=== PATIENT | male | born 1940 | race Caucasian/White ===

== ENCOUNTER 2017-09-21 16:46 | Emergency (ER) | payer MEDICARE, MEDICAID ==
[~2017-09-21] VITALS: Ht 167.6 cm; Wt 98.9 kg
[~2017-09-21 16:46] MED LIST: ASCO125T PO; ASPI-1009 PO; LISI30TA39 PO; ROSU20TA PO; SITA100T15 PO; SULF1TAB49 PO; VITA200T6 PO
[2017-09-21] MEDS ORDERED: bacitracin 15gm ointment TP ONE (17:35)
[2017-09-21] MEDS ORDERED: TETanus/Pertussis (Acell)/Diphther VAC/PF (Tdap-Adult) 0.5ml syringe IM ONE (17:35)
[2017-09-21] MEDS ORDERED: acetaminophen 325mg tablet PO ONE (17:35)
[2017-09-21] MEDS ORDERED: LIDOcaine 5% patch TP ONE (18:15)
[2017-09-21 19:05] VITALS: BP 158/87
== END 2017-09-21 19:09 | disposition home or self-care (01) ==
LOC: ER 16:47
DX: S00.81XA Abrasion of other part of head, initial encounter (principal); S09.8XXA Other specified injuries of head, initial encounter; M54.2 Cervicalgia; M25.512 Pain in left shoulder; I10 Essential (primary) hypertension; I48.91 Unspecified atrial fibrillation; I25.10 Atherosclerotic heart disease of native coronary artery without angina pectoris; E11.9 Type 2 diabetes mellitus without complications; E78.00 Pure hypercholesterolemia, unspecified; Z95.1 Presence of aortocoronary bypass graft; Z79.82 Long term (current) use of aspirin; Z98.890 Other specified postprocedural states; W01.0XXA Fall on same level from slipping, tripping and stumbling without subsequent striking against object, initial encounter; Y93.89 Activity, other specified; Y92.89 Other specified places as the place of occurrence of the external cause; Y99.8 Other external cause status
CPT/HCPCS: 70450; 72125; 90471; 90715; 99284; A6255; A6449

== ENCOUNTER 2017-10-29 02:18 | Outpatient (CLI) | payer MEDICARE, MEDICAID | END 2017-10-29 23:59 | disposition home or self-care (01) | LOC: DIABETIC 02:18 | PROVIDERS: ATTEND Specialist | DX: E11.65 Type 2 diabetes mellitus with hyperglycemia (principal); I10 Essential (primary) hypertension | CPT/HCPCS: G0108 ==

== ENCOUNTER 2018-01-29 02:49 | Outpatient (CLI) | payer MEDICARE, MEDICAID | END 2018-01-29 23:59 | disposition home or self-care (01) | LOC: DIABETIC 02:49 | PROVIDERS: ATTEND Specialist | DX: E11.65 Type 2 diabetes mellitus with hyperglycemia (principal); I10 Essential (primary) hypertension | CPT/HCPCS: G0108 ==

== ENCOUNTER 2020-02-04 09:34 | Emergency (ER) | payer MEDICARE, MEDICAID ==
[~2020-02-04] VITALS: Ht 165.1 cm; Wt 92.9 kg
[~2020-02-04 09:34] MED LIST changes: +AMIO200T61 PO; +APIX5TAB3 PO; -ASPI-1009 PO; +ASPI-845 PO; +CINA30TA2 PO; +DILT180C89 PO; +EZET10TA48 PO; +FENO200C23 PO; +GLIM2TAB6 PO; +HYDR-3972 PO; +LABE100T5 PO; -LISI30TA39 PO; -ROSU20TA PO; +ROSU40TA22 PO; -SITA100T15 PO; -SULF1TAB49 PO
[2020-02-04] MEDS ORDERED: aspirin 81mg tab.chew PO ONE (09:55)
[2020-02-04 10:03] LABS: BASOPHILS # (AUTO) 0.1 X10'3 (0-0.2); BASOPHILS % (AUTO) 0.8 % (0-1); EOSINOPHILS # (AUTO) 0.3 X10'3 (0-0.9); HEMATOCRIT 30.6 % (42.0-52.0); LYMPHOCYTES # (AUTO) 1.2 X10'3 (1.1-4.8); LYMPHOCYTES % (AUTO) 14.5 % (21-51); MEAN CORPUSCULAR HEMOGLOBIN 31.2 PG (27.0-31.0); MEAN CORPUSCULAR HGB CONC 32.7 g/dL (33.0-36.5); MEAN CORPUSCULAR VOLUME 95.5 FL (78-98); MEAN PLATELET VOLUME 9.1 FL (7.4-10.4); MONOCYTES # (AUTO) 0.7 X10'3 (0-0.9); MONOCYTES % (AUTO) 8.3 % (2-12); NEUTROPHILS # (AUTO) 5.9 X10'3 (1.8-7.7); NEUTROPHILS % (AUTO) 72.4 % (42-75); PLATELET COUNT 243 X10'3 (140-440); RED BLOOD COUNT 3.21 X10'6 (4.70-6.10); WHITE BLOOD COUNT 8.1 X10'3 (4.5-11.0)
[2020-02-04 10:15] LABS: ALANINE AMINOTRANSFERASE 25 U/L (12-78); ALBUMIN 3.8 G/DL (3.4-5.0); ALBUMIN/GLOBULIN RATIO 1.1 (1.1-1.5); ALKALINE PHOSPHATASE 75 IU/L (46-116); ANION GAP 10 (8-16); ASPARTATE AMINO TRANSFERASE 13 U/L (10-37); BILIRUBIN,TOTAL 0.5 MG/DL (0.1-1.0); BLOOD UREA NITROGEN 39 MG/DL (7-18); BUN/CREATININE RATIO 13.2 (5.4-32.0); CALCIUM 8.2 MG/DL (8.5-10.1); CHLORIDE 106 MMOL/L (99-107); CREATININE 2.95 MG/DL (0.60-1.10); GLUCOSE 182 MG/DL (70-104); POTASSIUM 3.9 MMOL/L (3.5-5.1); SODIUM 140 MMOL/L (135-145); TOTAL CARBON DIOXIDE 23.7 MMOL/L (24-32); TOTAL PROTEIN 7.2 G/DL (6.4-8.2); eGFR 21 ML/MIN
[2020-02-04 13:04] VITALS: BP 126/65
== END 2020-02-04 13:13 | disposition home or self-care (01) ==
LOC: ER 09:34
DX: R07.89 Other chest pain (principal); I48.91 Unspecified atrial fibrillation; I25.10 Atherosclerotic heart disease of native coronary artery without angina pectoris; E78.00 Pure hypercholesterolemia, unspecified; I10 Essential (primary) hypertension; E11.9 Type 2 diabetes mellitus without complications; M19.90 Unspecified osteoarthritis, unspecified site; Z86.14 Personal history of Methicillin resistant Staphylococcus aureus infection; Z98.61 Coronary angioplasty status; Z95.1 Presence of aortocoronary bypass graft; Z98.890 Other specified postprocedural states; Z60.2 Problems related to living alone; Z88.8 Allergy status to other drugs, medicaments and biological substances; Z79.01 Long term (current) use of anticoagulants; Z79.82 Long term (current) use of aspirin; Z79.899 Other long term (current) drug therapy
CPT/HCPCS: 36415; 71045; 80053; 82948; 83735; 83880; 84484; 85025; 93005; 99285

== ENCOUNTER 2021-10-15 19:24 | Emergency (ER) | payer MEDICARE, MEDICAID ==
[~2021-10-15] VITALS: Ht 162.6 cm; Wt 90.8 kg
[2021-10-15 19:52] VITALS: BP 143/69
[2021-10-15 20:37] LABS: BASOPHILS # (AUTO) 0.1 X10'3 (0-0.2); BASOPHILS % (AUTO) 0.6 % (0-1); EOSINOPHILS # (AUTO) 0.2 X10'3 (0-0.9); EOSINOPHILS % (AUTO) 2.4 % (0-6); LYMPHOCYTES % (AUTO) 10.8 % (21-51); MEAN CORPUSCULAR HEMOGLOBIN 24.7 PG (27.0-31.0); MEAN CORPUSCULAR HGB CONC 31.6 g/dL (33.0-36.5); MEAN CORPUSCULAR VOLUME 78.1 FL (78-98); MEAN PLATELET VOLUME 8.4 FL (7.4-10.4); MONOCYTES # (AUTO) 0.8 X10'3 (0-0.9); NEUTROPHILS % (AUTO) 77.2 % (42-75); PLATELET COUNT 278 X10'3 (140-440); RED BLOOD COUNT 2.69 X10'6 (4.70-6.10); RED CELL DISTRIBUTION WIDTH 19.8 % (11.5-14.5); WHITE BLOOD COUNT 9.1 X10'3 (4.5-11.0)
[2021-10-15 20:44] LABS: HEMOGLOBIN 6.6 g/dl (14.0-17.9)
[2021-10-15 20:55] LABS: ALANINE AMINOTRANSFERASE 24 U/L (12-78); ALBUMIN 3.2 G/DL (3.4-5.0); ALBUMIN/GLOBULIN RATIO 0.9 (1.1-1.5); ALKALINE PHOSPHATASE 123 IU/L (46-116); ANION GAP 16 (8-16); ASPARTATE AMINO TRANSFERASE 14 U/L (10-37); BILIRUBIN,TOTAL 0.3 MG/DL (0.1-1.0); BLOOD UREA NITROGEN 85 MG/DL (7-18); BUN/CREATININE RATIO 19.8 (5.4-32.0); CALCIUM 8.4 MG/DL (8.5-10.1); CHLORIDE 107 MMOL/L (99-107); GLUCOSE 136 MG/DL (70-104); POTASSIUM 3.5 MMOL/L (3.5-5.1); SODIUM 143 MMOL/L (135-145); TOTAL CARBON DIOXIDE 20.3 MMOL/L (24-32); TOTAL PROTEIN 6.7 G/DL (6.4-8.2); eGFR 13 ML/MIN
[2021-10-15] MEDS ORDERED: oxyCODONE/APAP 5-325mg tablet PO ONE (21:25)
[2021-10-15] MEDS ORDERED: ACET-1059 PO (21:37)
[2021-10-15 22:47] LABS: ACANTHOCYTES FEW; ANISOCYTOSIS 2+; BURR CELLS FEW; ELLIPTOCYTES FEW; MICROCYTOSIS 1+; PLATELET ESTIMATE NORMAL
--- NOTE | 2021-10-16 06:52 | NUR ---
PT WAS SEEN LAST NIGHT AND DC HOME. LAB CALLED AND STATES THAT PT HAD A CRITICAL TRIPONIN OF [address]. DR CASTRO NOTIFIED. ADVISED TO CALL PT AND INFORM HIM THAT HIS TRIPONIN IS SL ELEVATED AND INQUIRE IF HE IS HAVING ANY CP OR DISCOMFORT AND TO ADVISE THAT HE RETURN FOR FURTHER EVALUATION OR TO F/U WITH HIS PMD.
--- NOTE | 2021-10-16 08:32 | NUR ---
PT CALLED, NO ANSWER AND MSG WAS LEFT TO RETURN CALL.
--- NOTE | 2021-10-16 08:45 | NUR ---
PT RETURNED PHONE CALL. WAS INFORMED OF SL ELEVATED TRIPONIN AND THAT FURTHER EVALUATION MAY BE REQUIRED. PT STATES THAT HE HAS NO CP, SOB, OR DISCOMFORT OF ANY KIND. PT DECLINED RETURN TO ER AND IT WAS RECOMMENDED THAT HE F/U WITH HIS PMD FOR FURTHER EVALUATION AND TO RETURN TO THE ER SHOULD CONCERNING SYMPTOMS DEVELOPE. PT WAS APPRECIATED THE CALL, THAT HE HAS BEEN DEALING WITH ABNORMAL CARDIAC LABS FOR YEARS AND THAT HE WILL NOTIFIY HIS PMD NEEDED.
== END 2021-10-15 21:39 | disposition home or self-care (01) ==
LOC: ER 19:25
DX: M75.31 Calcific tendinitis of right shoulder (principal); I12.9 Hypertensive chronic kidney disease with stage 1 through stage 4 chronic kidney disease, or unspecified chronic kidney disease; E11.22 Type 2 diabetes mellitus with diabetic chronic kidney disease; N18.4 Chronic kidney disease, stage 4 (severe); D63.1 Anemia in chronic kidney disease; I48.91 Unspecified atrial fibrillation; I25.10 Atherosclerotic heart disease of native coronary artery without angina pectoris; E78.00 Pure hypercholesterolemia, unspecified; M19.90 Unspecified osteoarthritis, unspecified site; Z86.14 Personal history of Methicillin resistant Staphylococcus aureus infection; Z95.5 Presence of coronary angioplasty implant and graft; Z98.890 Other specified postprocedural states; Z88.8 Allergy status to other drugs, medicaments and biological substances; Z79.82 Long term (current) use of aspirin; Z79.899 Other long term (current) drug therapy
CPT/HCPCS: 36415; 71045; 73030; 80053; 83880; 84484; 85008; 85025; 93005; 99284

== ENCOUNTER 2022-02-13 14:52 | Inpatient (IN) | payer MEDICARE, MEDICAID ==
[~2022-02-13] VITALS: Ht 165.1 cm; Wt 87.0 kg
[2022-02-13 15:44] LABS: BASOPHILS % (AUTO) 0.6 % (0-1); EOSINOPHILS % (AUTO) 0.2 % (0-6); LYMPHOCYTES # (AUTO) 0.6 X10'3 (1.1-4.8); LYMPHOCYTES % (AUTO) 7.3 % (21-51); MEAN CORPUSCULAR HEMOGLOBIN 31.2 PG (27.0-31.0); MEAN CORPUSCULAR HGB CONC 31.9 g/dL (33.0-36.5); MEAN CORPUSCULAR VOLUME 97.7 FL (78-98); MEAN PLATELET VOLUME 9.3 FL (7.4-10.4); MONOCYTES # (AUTO) 0.5 X10'3 (0-0.9); MONOCYTES % (AUTO) 5.6 % (2-12); NEUTROPHILS # (AUTO) 7.2 X10'3 (1.8-7.7); NEUTROPHILS % (AUTO) 86.3 % (42-75); PLATELET COUNT 252 X10'3 (140-440); RED BLOOD COUNT 1.92 X10'6 (4.70-6.10); RED CELL DISTRIBUTION WIDTH 16.5 % (11.5-14.5); WHITE BLOOD COUNT 8.3 X10'3 (4.5-11.0)
[2022-02-13 15:47] LABS: HEMATOCRIT 18.8 % (42.0-52.0)
[2022-02-13 15:48] LABS: ALANINE AMINOTRANSFERASE 24 U/L (12-78); ALKALINE PHOSPHATASE 111 IU/L (46-116); ANION GAP 13 (8-16); ASPARTATE AMINO TRANSFERASE 21 U/L (10-37); BILIRUBIN,TOTAL 0.3 MG/DL (0.1-1.0); BLOOD UREA NITROGEN 88 MG/DL (7-18); BUN/CREATININE RATIO 19.3 (5.4-32.0); CALCIUM 8.2 MG/DL (8.5-10.1); CHLORIDE 104 MMOL/L (99-107); CREATININE 4.55 MG/DL (0.60-1.10); GLUCOSE 252 MG/DL (70-104); POTASSIUM 3.3 MMOL/L (3.5-5.1); SODIUM 139 MMOL/L (135-145); TOTAL CARBON DIOXIDE 22.1 MMOL/L (24-32); TOTAL PROTEIN 6.1 G/DL (6.4-8.2); eGFR 13 ML/MIN
[2022-02-13] MEDS ORDERED: pantoprazole 40MG/NS 100ML BAG 100 ML IV ONE (17:25)
[2022-02-13] MEDS ORDERED: pantoprazole IV 80 MG in normal saline 100ml IV soln 100 ML IV ONE (17:25)
[2022-02-13 17:28] LABS: OCCULT BLOOD STOOL POSITIVE (Neg)
[2022-02-13] MEDS ORDERED: human prothrombin complex-PCC 100 ML IV ONE ×2 (17:45→18:05)
[2022-02-13] MEDS ORDERED: normal saline 1000ML IV soln IVB ONE (18:25)
[2022-02-13 21:08] LABS: BASOPHILS % (AUTO) 0.5 % (0-1); EOSINOPHILS # (AUTO) 0.1 X10'3 (0-0.9); EOSINOPHILS % (AUTO) 1.2 % (0-6); LYMPHOCYTES # (AUTO) 0.9 X10'3 (1.1-4.8); MEAN CORPUSCULAR HEMOGLOBIN 30.2 PG (27.0-31.0); MEAN CORPUSCULAR HGB CONC 31.3 g/dL (33.0-36.5); MEAN CORPUSCULAR VOLUME 96.4 FL (78-98); MEAN PLATELET VOLUME 9.1 FL (7.4-10.4); MONOCYTES # (AUTO) 0.5 X10'3 (0-0.9); MONOCYTES % (AUTO) 7.3 % (2-12); NEUTROPHILS # (AUTO) 5.9 X10'3 (1.8-7.7); PLATELET COUNT 231 X10'3 (140-440); RED BLOOD COUNT 1.83 X10'6 (4.70-6.10); RED CELL DISTRIBUTION WIDTH 16.4 % (11.5-14.5); WHITE BLOOD COUNT 7.5 X10'3 (4.5-11.0)
[2022-02-13 21:13] LABS: HEMATOCRIT 17.6 % (42.0-52.0); HEMOGLOBIN 5.5 g/dl (14.0-17.9)
[2022-02-13] MEDS ORDERED: POTASSIUM BICARB 20meq eff tab 20 MEQ TABLET.EFF PO PRN (21:50)
[2022-02-13] MEDS ORDERED: magnesium Cl slow-release 64mg tablet PO PRN (21:50)
[2022-02-13] MEDS ORDERED: magnesium 4gm in 100ml NS 100 ML IV PRN (21:50)
[2022-02-13] MEDS ORDERED: ondansetron/PF 4mg/2ml inj IV PRN (21:50)
[2022-02-13] MEDS ORDERED: morphine 2 MG/ML inj. syringe IV PRN ×2 (21:50)
[2022-02-13] MEDS ORDERED: magnesium 2GM in 50ml NS 50 ML IV PRN (21:50)
[2022-02-13] MEDS ORDERED: diphenhydrAMINE 25mg capsule PO PRN (21:50)
[2022-02-13] MEDS ORDERED: acetaminophen 325mg tablet PO PRN ×2 (21:50)
[2022-02-13] MEDS ORDERED: mag hydrox/Alum hydrox/simeth 30ml oral suspension PO PRN (21:50)
[2022-02-13] MEDS ORDERED: potassium CL 10mEq/100ml bag 100 ML IV PRN (21:50)
[2022-02-13] MEDS ORDERED: magnesium hydroxide 30ml (MOM) UD suspension PO PRN (21:50)
[2022-02-13 22:19] LABS: MEAN CORPUSCULAR HEMOGLOBIN 30.6 PG (27.0-31.0); MEAN CORPUSCULAR HGB CONC 31.6 g/dL (33.0-36.5); MEAN CORPUSCULAR VOLUME 96.6 FL (78-98); MEAN PLATELET VOLUME 8.9 FL (7.4-10.4); PLATELET COUNT 238 X10'3 (140-440); RED BLOOD COUNT 1.83 X10'6 (4.70-6.10); RED CELL DISTRIBUTION WIDTH 16.5 % (11.5-14.5); WHITE BLOOD COUNT 7.6 X10'3 (4.5-11.0)
[2022-02-13 22:26] LABS: HEMOGLOBIN 5.6 g/dl (14.0-17.9)
[2022-02-13 22:27] LABS: HEMATOCRIT 17.7 % (42.0-52.0)
[2022-02-13 22:30] LABS: % IRON SATURATION 9 % (11-46); IRON 26 UG/DL (53-167); TOTAL IRON BINDING CAPACITY 291 UG/DL (259-388)
[2022-02-13 22:43] LABS: FERRITIN 55 NG/ML (26-388)
--- NOTE | 2022-02-13 23:05 | NUR ---
Patient in room ED 1. I have received report from Eugene and had the opportunity to ask questions and assume patient care.
[2022-02-13] MEDS ORDERED: glucagon, human recombinant 1mg kit SUBCUT PRN (23:10)
[2022-02-13] MEDS: normal saline 1000ml 1,000 ML IV SCH (23:10)
[2022-02-13] MEDS: sodium ferric gluc complex inj 125 MG in normal saline 100ml IV soln 100 ML IV SCH (23:10)
[2022-02-13] MEDS ORDERED: dextrose 50%-water 50ml dispensing syringe IV PRN ×2 (23:10)
[2022-02-13] MEDS ORDERED: MESSAGE TO PHARMACY PO ONE (23:10)
[2022-02-13] MEDS ORDERED: DEXTROSE 15 GM of carb/4 tabs (each vial/BOTTLE has 4 tablets) PO PRN ×2 (23:10)
[2022-02-13 23:30] VITALS: BP 102/66
--- NOTE | 2022-02-13 23:30 | NUR ---
Patient arrived on unit via gurney accompanied by RN.
[2022-02-14] VITALS (11 sets, daily range): BP systolic 82–107; BP diastolic 54–68
[2022-02-14] MEDS: POTASSIUM BICARB 20meq eff tab 20 MEQ TABLET.EFF PO PRN ×3 (00:54→20:20)
[2022-02-14] MEDS: pantoprazole 40MG/NS 100ML BAG 100 ML IV SCH ×5 (00:54→21:00)
[2022-02-14 03:14] LABS: BASOPHILS % (AUTO) 0.6 % (0-1); EOSINOPHILS # (AUTO) 0.1 X10'3 (0-0.9); EOSINOPHILS % (AUTO) 1.5 % (0-6); LYMPHOCYTES % (AUTO) 13.7 % (21-51); MEAN CORPUSCULAR HEMOGLOBIN 30.4 PG (27.0-31.0); MEAN CORPUSCULAR HGB CONC 31.5 g/dL (33.0-36.5); MEAN CORPUSCULAR VOLUME 96.3 FL (78-98); MEAN PLATELET VOLUME 9.2 FL (7.4-10.4); MONOCYTES # (AUTO) 0.5 X10'3 (0-0.9); MONOCYTES % (AUTO) 6.3 % (2-12); NEUTROPHILS # (AUTO) 5.9 X10'3 (1.8-7.7); NEUTROPHILS % (AUTO) 77.9 % (42-75); PLATELET COUNT 230 X10'3 (140-440); RED BLOOD COUNT 1.72 X10'6 (4.70-6.10); RED CELL DISTRIBUTION WIDTH 16.5 % (11.5-14.5); WHITE BLOOD COUNT 7.6 X10'3 (4.5-11.0)
[2022-02-14 03:23] LABS: HEMATOCRIT 16.6 % (42.0-52.0); HEMOGLOBIN 5.2 g/dl (14.0-17.9)
--- NOTE | 2022-02-14 03:27 | NUR ---
Paged Dr. Ashley regarding CRITICAL LABS. Hgb 5.2 and Hct 16.6. Patient up to [facility] and became very light headed. Discussed risks and benefits of a blood transfusion and patient is refusing one at this time.
[2022-02-14 03:28] LABS: ALANINE AMINOTRANSFERASE 21 U/L (12-78); ALBUMIN 2.7 G/DL (3.4-5.0); ALBUMIN/GLOBULIN RATIO 0.9 (1.1-1.5); ALKALINE PHOSPHATASE 90 IU/L (46-116); ANION GAP 11 (8-16); ASPARTATE AMINO TRANSFERASE 13 U/L (10-37); BILIRUBIN,TOTAL 0.3 MG/DL (0.1-1.0); BLOOD UREA NITROGEN 84 MG/DL (7-18); BUN/CREATININE RATIO 20.4 (5.4-32.0); CALCIUM 7.8 MG/DL (8.5-10.1); CHLORIDE 107 MMOL/L (99-107); CHOL/HDL RATIO 3.8 (0.00-4.99); CHOLESTEROL 91 MG/DL (0-200); CREATININE 4.12 MG/DL (0.60-1.10); GLUCOSE 133 MG/DL (70-104); HDL CHOLESTEROL 24 MG/DL (35-60); LDL CHOLESTEROL 38 MG/DL (50-100); MAGNESIUM 1.6 MG/DL (1.5-2.4); PHOSPHORUS 3.9 MG/DL (2.3-4.5); POTASSIUM 3.4 MMOL/L (3.5-5.1); SODIUM 141 MMOL/L (135-145); TOTAL CARBON DIOXIDE 22.6 MMOL/L (24-32); TOTAL PROTEIN 5.6 G/DL (6.4-8.2); TRIGLYCERIDES 132 MG/DL (20-135); eGFR 14 ML/MIN
[2022-02-14] MEDS: normal saline 1000ml 1,000 ML IV SCH ×2 (04:53→14:45)
[2022-02-14] MEDS: K and/or MAG REPLACEMENT MC SCH ×2 (08:00→20:21)
[2022-02-14] MEDS: docusate sod 100mg capsule PO SCH ×2 (08:00→20:19)
[2022-02-14] MEDS ORDERED: fentaNYL/PF 50MCG/1 ML 2ML syringe ONE (08:32)
[2022-02-14] MEDS ORDERED: MIDAZolam 1 MG/ML 5ML VIAL ONE (08:33)
[2022-02-14] MEDS ORDERED: LIDOcaine Viscous 15ml cup ONE (08:33)
--- NOTE | 2022-02-14 08:57 | NUR ---
Pt. kath in EGD with Dr. Chris.
[2022-02-14 09:10] LABS: MEAN CORPUSCULAR HEMOGLOBIN 30.6 PG (27.0-31.0); MEAN CORPUSCULAR HGB CONC 31.5 g/dL (33.0-36.5); MEAN CORPUSCULAR VOLUME 97.2 FL (78-98); MEAN PLATELET VOLUME 8.9 FL (7.4-10.4); PLATELET COUNT 234 X10'3 (140-440); RED BLOOD COUNT 1.71 X10'6 (4.70-6.10); RED CELL DISTRIBUTION WIDTH 16.7 % (11.5-14.5); WHITE BLOOD COUNT 7.7 X10'3 (4.5-11.0)
[2022-02-14 09:13] LABS: HEMOGLOBIN 5.2 g/dl (14.0-17.9)
[2022-02-14 09:14] LABS: HEMATOCRIT 16.6 % (42.0-52.0)
--- NOTE | 2022-02-14 09:14 | NUR ---
Message: Joselito Javier 3014A FYI critical H&H 5.2/16.6 Down in EGD. Micaela [phone]
[2022-02-14 13:54] LABS: MEAN CORPUSCULAR HEMOGLOBIN 30.1 PG (27.0-31.0); MEAN CORPUSCULAR HGB CONC 30.9 g/dL (33.0-36.5); MEAN CORPUSCULAR VOLUME 97.3 FL (78-98); MEAN PLATELET VOLUME 9.4 FL (7.4-10.4); PLATELET COUNT 223 X10'3 (140-440); RED BLOOD COUNT 1.69 X10'6 (4.70-6.10); RED CELL DISTRIBUTION WIDTH 16.3 % (11.5-14.5); WHITE BLOOD COUNT 7.4 X10'3 (4.5-11.0)
[2022-02-14 14:00] LABS: HEMATOCRIT 16.5 % (42.0-52.0); HEMOGLOBIN 5.1 g/dl (14.0-17.9)
[2022-02-14] MEDS ORDERED: PEG 3350/Na sulf,bicarb,Cl/KCl oral sol 4 liter bottle PO ONE (18:30)
--- NOTE | 2022-02-14 18:31 | NUR ---
Gave report to Kaur SOLARES.
--- NOTE | 2022-02-14 18:40 | NUR ---
Gave report to Prudence BECK.
--- NOTE | 2022-02-14 18:40 | NUR ---
Patient in room PCU 3014A. I have received report from Micaela SOLARES and had the opportunity to ask questions and assume patient care.
[2022-02-14] MEDS: labetalol 100mg tablet PO SCH (20:00)
--- NOTE | 2022-02-14 20:45 | NUR ---
Pts SBP 97/61 held Labetalol per MD orders of SBP <100.
[2022-02-14] MEDS: insulin glargine (Lantus) pen - multi-dose SQ SCH (21:00)
[2022-02-14] MEDS: sodium ferric gluc complex inj 125 MG in normal saline 100ml IV soln 100 ML IV SCH (21:28)
[2022-02-15] MEDS: pantoprazole 40MG/NS 100ML BAG 100 ML IV SCH ×5 (00:38→23:41)
[2022-02-15] MEDS: normal saline 1000ml 1,000 ML IV SCH ×2 (00:39→14:13)
--- NOTE | 2022-02-15 00:47 | NUR ---
Encouraged pt to drink more GoLYTELY. PT stated he is sleepy, feels full and will drink more later.
--- NOTE | 2022-02-15 02:30 | NUR ---
Encouraged Pt to drink more GoLYTELY upon room rounds. Pt declined stating his stomach feels like its "doing flips". Assisted pt to the commode with successful BM. Pt stated he was feeling better. Pt denies any nausea. Education provided on use of GoLYTELY. Pt stated he understands and still declines to drink any more at this time. Will continue to monitor.
--- NOTE | 2022-02-15 04:08 | NUR ---
Pt declined taking any more drinks of his GoLytely at this time. Pt states he is tired and wants to sleep. will continue to monitior.
[2022-02-15 06:00] VITALS: BP 82/53
--- NOTE | 2022-02-15 06:29 | NUR ---
Problems reprioritized. Patient report given, questions answered & plan of care reviewed with Contreras RN
[2022-02-15 07:16] LABS: BASOPHILS # (AUTO) 0.1 X10'3 (0-0.2); BASOPHILS % (AUTO) 0.9 % (0-1); EOSINOPHILS # (AUTO) 0.2 X10'3 (0-0.9); EOSINOPHILS % (AUTO) 2.1 % (0-6); LYMPHOCYTES # (AUTO) 1.1 X10'3 (1.1-4.8); LYMPHOCYTES % (AUTO) 14.5 % (21-51); MEAN CORPUSCULAR HEMOGLOBIN 30.6 PG (27.0-31.0); MEAN CORPUSCULAR VOLUME 98.8 FL (78-98); MEAN PLATELET VOLUME 8.8 FL (7.4-10.4); MONOCYTES # (AUTO) 0.6 X10'3 (0-0.9); MONOCYTES % (AUTO) 8.6 % (2-12); NEUTROPHILS # (AUTO) 5.5 X10'3 (1.8-7.7); NEUTROPHILS % (AUTO) 73.9 % (42-75); PLATELET COUNT 209 X10'3 (140-440); RED BLOOD COUNT 1.76 X10'6 (4.70-6.10); RED CELL DISTRIBUTION WIDTH 16.9 % (11.5-14.5); WHITE BLOOD COUNT 7.5 X10'3 (4.5-11.0)
[2022-02-15 07:23] LABS: ALANINE AMINOTRANSFERASE 27 U/L (12-78); ALBUMIN 2.5 G/DL (3.4-5.0); ALBUMIN/GLOBULIN RATIO 0.9 (1.1-1.5); ALKALINE PHOSPHATASE 85 IU/L (46-116); ANION GAP 13 (8-16); ASPARTATE AMINO TRANSFERASE 26 U/L (10-37); BILIRUBIN,TOTAL 0.3 MG/DL (0.1-1.0); BLOOD UREA NITROGEN 73 MG/DL (7-18); CALCIUM 7.4 MG/DL (8.5-10.1); CHLORIDE 111 MMOL/L (99-107); CREATININE 3.85 MG/DL (0.60-1.10); GLUCOSE 94 MG/DL (70-104); MAGNESIUM 1.6 MG/DL (1.5-2.4); PHOSPHORUS 4.2 MG/DL (2.3-4.5); POTASSIUM 3.7 MMOL/L (3.5-5.1); SODIUM 144 MMOL/L (135-145); TOTAL CARBON DIOXIDE 20.5 MMOL/L (24-32); TOTAL PROTEIN 5.3 G/DL (6.4-8.2); eGFR 15 ML/MIN
[2022-02-15] MEDS: labetalol 100mg tablet PO SCH ×2 (08:00→20:51)
[2022-02-15] MEDS: diltiazem CD 180mg cap (once-daily) PO SCH (08:00)
[2022-02-15] MEDS: docusate sod 100mg capsule PO SCH ×2 (08:00→20:51)
[2022-02-15] MEDS ORDERED: fenofibrate 145mg tablet PO SCH (08:00)
[2022-02-15] MEDS: K and/or MAG REPLACEMENT MC SCH ×2 (08:00→20:52)
[2022-02-15] MEDS ORDERED: VITAMIN E 400 UNIT PO SCH (08:00)
[2022-02-15 08:03] LABS: HEMATOCRIT 17.4 % (42.0-52.0); HEMOGLOBIN 5.4 g/dl (14.0-17.9)
[2022-02-15] MEDS: amiodarone 200mg tablet PO SCH (08:18)
[2022-02-15] MEDS: atorvastatin 20mg tablet PO SCH (08:18)
[2022-02-15] MEDS: ezetimibe 10mg tablet PO SCH (08:18)
[2022-02-15] MEDS: cinacalcet 30mg tablet PO SCH (08:18)
--- NOTE | 2022-02-15 08:27 | NUR ---
Message: PO WINN RM [id number] CRITICAL VALUE HGB 5.4
[2022-02-15 11:00] VITALS: BP 110/64
--- NOTE | 2022-02-15 12:43 | NUR ---
Message: RE DULCE WINN RM 1448K COLONOSCOPY RESCHEDULED FOR TOMORROW. PT IS DRINKING GO LYTELY! THANK YOU, YASEMIN SOLARES Custom Responses: promotional table spacer
[2022-02-15 15:00] VITALS: BP 103/65
[2022-02-15] MEDS ORDERED: EPOETIN ALFA-EPBX 20,000 UNIT/ML 1 ML MDV SQ SCH (15:40)
[2022-02-15] MEDS ORDERED: ondansetron 4mg rapidly disintigrating tab PO PRN (16:40)
--- NOTE | 2022-02-15 17:13 | NUR ---
NOTIFIED PHARMACY I NEEDED EPOETIN. LOCKSTITCH SLEEVE SETTER STATED THEY WOULD PREPARE AND DELIVER. I CALLED AGAIN SINCE IT STILL HAD NOT BEEN DELIVERED. PHARMTECH NOW STATES THEY DO NOT HAVE ANYONE TO BRING IT TO ME RIGHT NOW, THEY WILL DELIVER TO THE REFRIGERATOR SOON SOMEONE CAN. I REQUESTED THE MED BE RETIMED ISNCE IT APPEARS I WOULD BE ADMINISTERING LATE, WAS TOLD NO THEY COULD NOT. IF NOT HERE BY TIME NOC SHIFT ARRIVES I WILL REPORT THIS TO ONCOMING NURSE.
[2022-02-15 18:00] VITALS: BP 105/65
[2022-02-15] MEDS: insulin glargine (Lantus) pen - multi-dose SQ SCH (21:00)
[2022-02-15 22:00] VITALS: BP 90/50
[2022-02-15] MEDS: sodium ferric gluc complex inj 125 MG in normal saline 100ml IV soln 100 ML IV SCH (22:33)
[2022-02-16] VITALS (20 sets, daily range): BP systolic 56–112; BP diastolic 12–67
[2022-02-16] MEDS: normal saline 1000ml 1,000 ML IV SCH (02:26)
[2022-02-16] MEDS: pantoprazole 40MG/NS 100ML BAG 100 ML IV SCH ×5 (04:46→23:01)
[2022-02-16 06:15] LABS: BASOPHILS % (AUTO) 0.6 % (0-1); EOSINOPHILS # (AUTO) 0.1 X10'3 (0-0.9); EOSINOPHILS % (AUTO) 1.3 % (0-6); LYMPHOCYTES # (AUTO) 0.8 X10'3 (1.1-4.8); LYMPHOCYTES % (AUTO) 13.3 % (21-51); MEAN CORPUSCULAR HEMOGLOBIN 30.9 PG (27.0-31.0); MEAN CORPUSCULAR HGB CONC 31.5 g/dL (33.0-36.5); MEAN CORPUSCULAR VOLUME 97.9 FL (78-98); MEAN PLATELET VOLUME 8.9 FL (7.4-10.4); MONOCYTES # (AUTO) 0.5 X10'3 (0-0.9); MONOCYTES % (AUTO) 7.5 % (2-12); NEUTROPHILS # (AUTO) 4.8 X10'3 (1.8-7.7); NEUTROPHILS % (AUTO) 77.3 % (42-75); PLATELET COUNT 207 X10'3 (140-440); RED BLOOD COUNT 1.76 X10'6 (4.70-6.10); RED CELL DISTRIBUTION WIDTH 16.6 % (11.5-14.5); WHITE BLOOD COUNT 6.2 X10'3 (4.5-11.0)
--- NOTE | 2022-02-16 06:18 | NUR ---
Problems reprioritized. Patient report given, questions answered & plan of care reviewed with Solange SOLARES
[2022-02-16 06:21] LABS: HEMATOCRIT 17.2 % (42.0-52.0); HEMOGLOBIN 5.4 g/dl (14.0-17.9)
[2022-02-16 06:32] LABS: ALANINE AMINOTRANSFERASE 52 U/L (12-78); ALBUMIN 2.5 G/DL (3.4-5.0); ALKALINE PHOSPHATASE 87 IU/L (46-116); ANION GAP 13 (8-16); ASPARTATE AMINO TRANSFERASE 44 U/L (10-37); BILIRUBIN,TOTAL 0.3 MG/DL (0.1-1.0); BLOOD UREA NITROGEN 62 MG/DL (7-18); BUN/CREATININE RATIO 16.7 (5.4-32.0); CALCIUM 7.6 MG/DL (8.5-10.1); CHLORIDE 113 MMOL/L (99-107); CREATININE 3.72 MG/DL (0.60-1.10); GLUCOSE 68 MG/DL (70-104); MAGNESIUM 1.6 MG/DL (1.5-2.4); PHOSPHORUS 4.4 MG/DL (2.3-4.5); POTASSIUM 3.3 MMOL/L (3.5-5.1); SODIUM 147 MMOL/L (135-145); TOTAL PROTEIN 5.1 G/DL (6.4-8.2); eGFR 16 ML/MIN
--- NOTE | 2022-02-16 07:40 | NUR ---
Paged Dr Colbert Message: [phone]. Joselito Javier. BP 70/30 w/dizziness. 250 ml NS bolus given 98/49 w/no dizziness. Solange Ratliff [phone] Transaction number: [id number]
[2022-02-16] MEDS: labetalol 100mg tablet PO SCH ×2 (08:00→19:20)
[2022-02-16] MEDS: docusate sod 100mg capsule PO SCH ×2 (08:00→19:19)
[2022-02-16] MEDS: diltiazem CD 180mg cap (once-daily) PO SCH (08:00)
[2022-02-16] MEDS: K and/or MAG REPLACEMENT MC SCH ×2 (08:00→19:23)
--- NOTE | 2022-02-16 08:15 | NUR ---
Pt's BP is better and not feeling dizzy anymore. All other VS stable. monitoring
[2022-02-16] MEDS: cinacalcet 30mg tablet PO SCH (08:55)
[2022-02-16] MEDS: ezetimibe 10mg tablet PO SCH (08:55)
[2022-02-16] MEDS: amiodarone 200mg tablet PO SCH (08:55)
[2022-02-16] MEDS: vitamin E 400 unit capsule PO SCH (08:55)
[2022-02-16] MEDS: atorvastatin 20mg tablet PO SCH (08:55)
[2022-02-16] MEDS ORDERED: fentaNYL/PF 50MCG/1 ML 2ML syringe ONE (09:08)
[2022-02-16] MEDS ORDERED: MIDAZolam 1 MG/ML 5ML VIAL ONE (09:08)
--- NOTE | 2022-02-16 09:11 | NUR ---
Spoke with patient re: needing blood transfusion. Risks vs benefits explained - pt still declining blood products and understands his very poor prognosis.
--- NOTE | 2022-02-16 09:20 | NUR ---
Pt taken down for procedure.
[2022-02-16] MEDS: fenofibrate 145mg tablet PO SCH (10:00)
--- NOTE | 2022-02-16 12:00 | NUR ---
Pt refused 1200 BG check
--- NOTE | 2022-02-16 12:45 | NUR ---
Paged Dr Colbert Message: [phone]. Joselito Javier. Pt back from colonoscopy. Can he eat? Sherie Narvaez [phone] Transaction number: [id number]
--- NOTE | 2022-02-16 13:18 | NUR ---
Paged Dr Colbert Message: [phone]. Joselito Javier. Can pt eat? Thx Solange [phone] Transaction number: [id number]
--- NOTE | 2022-02-16 13:20 | NUR ---
Per MD Filemon wright for patient to eat, start with full liquids then advance to heart healthy for dinner.
[2022-02-16] MEDS: POTASSIUM BICARB 20meq eff tab 20 MEQ TABLET.EFF PO PRN ×2 (14:33→19:23)
--- NOTE | 2022-02-16 17:58 | NUR ---
Pt has been pleasant all day. Colonoscopy was performed. Medical mgmt by hospitalist. Pt was dizzy this AM with low BP. 250 NS bolus given with + results. MD aware. Pt has had soft BP's throughout the day but no dizzyness. He has been able to transfer himself to and from the bed to commode with ease. Pt was able to eat a full liquid diet for lunch and advanced to a heart healthy for dinner. Pt is still refusing any blood products despite multiple visitors/family speaking with him.
[2022-02-16] MEDS: sodium ferric gluc complex inj 125 MG in normal saline 100ml IV soln 100 ML IV SCH (20:58)
[2022-02-16] MEDS: insulin glargine (Lantus) pen - multi-dose SQ SCH (21:27)
[2022-02-17] VITALS (13 sets, daily range): BP systolic 74–119; BP diastolic 36–65
[2022-02-17] MEDS: normal saline 1000ml 1,000 ML IV SCH (01:01)
[2022-02-17] MEDS: pantoprazole 40MG/NS 100ML BAG 100 ML IV SCH ×5 (03:25→20:43)
--- NOTE | 2022-02-17 06:47 | NUR ---
Change of shift report given to BECK Douglas. Issues reprioritized. pt stable. no acute complaints at this time
[2022-02-17 06:49] LABS: BASOPHILS % (AUTO) 0.3 % (0-1); EOSINOPHILS # (AUTO) 0.2 X10'3 (0-0.9); EOSINOPHILS % (AUTO) 1.5 % (0-6); LYMPHOCYTES # (AUTO) 1.1 X10'3 (1.1-4.8); LYMPHOCYTES % (AUTO) 8.6 % (21-51); MEAN CORPUSCULAR HEMOGLOBIN 30.3 PG (27.0-31.0); MEAN CORPUSCULAR HGB CONC 30.8 g/dL (33.0-36.5); MEAN CORPUSCULAR VOLUME 98.3 FL (78-98); MEAN PLATELET VOLUME 9.3 FL (7.4-10.4); MONOCYTES # (AUTO) 1.1 X10'3 (0-0.9); MONOCYTES % (AUTO) 8.5 % (2-12); NEUTROPHILS # (AUTO) 10.5 X10'3 (1.8-7.7); NEUTROPHILS % (AUTO) 81.1 % (42-75); PLATELET COUNT 231 X10'3 (140-440); RED BLOOD COUNT 2.01 X10'6 (4.70-6.10); RED CELL DISTRIBUTION WIDTH 16.5 % (11.5-14.5)
[2022-02-17 06:53] LABS: ALANINE AMINOTRANSFERASE 169 U/L (12-78); ALBUMIN 2.6 G/DL (3.4-5.0); ALBUMIN/GLOBULIN RATIO 0.9 (1.1-1.5); ALKALINE PHOSPHATASE 152 IU/L (46-116); ANION GAP 14 (8-16); ASPARTATE AMINO TRANSFERASE 118 U/L (10-37); BILIRUBIN,TOTAL 0.4 MG/DL (0.1-1.0); BLOOD UREA NITROGEN 62 MG/DL (7-18); BUN/CREATININE RATIO 15.4 (5.4-32.0); CALCIUM 7.1 MG/DL (8.5-10.1); CHLORIDE 110 MMOL/L (99-107); CREATININE 4.03 MG/DL (0.60-1.10); GLUCOSE 167 MG/DL (70-104); MAGNESIUM 1.6 MG/DL (1.5-2.4); PHOSPHORUS 5.1 MG/DL (2.3-4.5); POTASSIUM 4.2 MMOL/L (3.5-5.1); SODIUM 143 MMOL/L (135-145); TOTAL CARBON DIOXIDE 18.9 MMOL/L (24-32); TOTAL PROTEIN 5.4 G/DL (6.4-8.2); eGFR 14 ML/MIN
[2022-02-17] MEDS: epoetin 20,000 units/ml inj SQ SCH (06:55)
[2022-02-17 07:02] LABS: HEMATOCRIT 19.8 % (42.0-52.0); HEMOGLOBIN 6.1 g/dl (14.0-17.9)
[2022-02-17] MEDS: K and/or MAG REPLACEMENT MC SCH ×2 (08:00→19:28)
[2022-02-17] MEDS: docusate sod 100mg capsule PO SCH ×2 (08:00→19:28)
[2022-02-17] MEDS: diltiazem CD 180mg cap (once-daily) PO SCH (09:14)
[2022-02-17] MEDS: amiodarone 200mg tablet PO SCH (09:15)
[2022-02-17] MEDS: atorvastatin 20mg tablet PO SCH (09:15)
[2022-02-17] MEDS: fenofibrate 145mg tablet PO SCH (09:16)
[2022-02-17] MEDS: labetalol 100mg tablet PO SCH ×2 (09:16→19:29)
[2022-02-17] MEDS: cinacalcet 30mg tablet PO SCH (09:16)
[2022-02-17] MEDS: ezetimibe 10mg tablet PO SCH (09:17)
[2022-02-17] MEDS: vitamin E 400 unit capsule PO SCH (09:17)
[2022-02-17] MEDS: HYDROcodone/acetaminophen 10/325mg tab PO PRN (09:17)
--- NOTE | 2022-02-17 10:39 | NUR ---
Initial: Pt admit for GIB with symptomatic anemia. Per EMR pt with CKD IV, nephrology following. Pt initially on a liquid diet and eating well with mostly 100% PO intake however not able to meet estimated nutrient needs on liquid diet. Pt now on a heart healthy diet, pending documentation of first meal since diet advancement. Recommend liberalizing to regular diet in view of geriatric age. Noted pt with h/o T2DM, well controlled with A1c 6.0%, DM education not warranted. LBM 6/3 documented with diarrhea and blood in stool. Will continue to follow closely and make recommendations as appropriate pending trends in PO intake. Recommendations: 1) Liberalize to regular diet; monitor electrolytes and need for renal restriction 2) Monitor need for ONS 3) Bowel care per MD 4) Weekly scaled weights Addendum: 02/17/22 at [address] Amended: Links added.
[2022-02-17] MEDS ORDERED: furosemide 40mg/4ml inj IV ONE (11:30)
--- NOTE | 2022-02-17 11:57 | NUR ---
ORDERS FOR TYPE AND SCREEN AND 2 UNITS OF PRBC PUT IN PER DR. LIM.
--- NOTE | 2022-02-17 17:49 | NUR ---
Pt's blood glucose at noon and 1700 were 155 and 153, Pt refused insulin coverage "I'm not going to eat." 3nd unit of PRBC;s up and running no s/syms of reaction. Pt did not have reaction to first unit. Continue to monitor. Notify MD of assessment changes. BP's still soft. MD aware/
[2022-02-17] MEDS: sodium ferric gluc complex inj 125 MG in normal saline 100ml IV soln 100 ML IV SCH (20:31)
[2022-02-17] MEDS: insulin glargine (Lantus) pen - multi-dose SQ SCH (21:43)
[2022-02-18] MEDS: pantoprazole 40MG/NS 100ML BAG 100 ML IV SCH ×2 (01:19→08:44)
[2022-02-18 02:00] VITALS: BP 101/55
[2022-02-18 06:00] VITALS: BP 117/72
[2022-02-18 06:13] LABS: BASOPHILS % (AUTO) 0.3 % (0-1); EOSINOPHILS # (AUTO) 0.2 X10'3 (0-0.9); EOSINOPHILS % (AUTO) 1.7 % (0-6); HEMATOCRIT 24.5 % (42.0-52.0); HEMOGLOBIN 7.7 g/dl (14.0-17.9); LYMPHOCYTES # (AUTO) 0.9 X10'3 (1.1-4.8); LYMPHOCYTES % (AUTO) 6.2 % (21-51); MEAN CORPUSCULAR HEMOGLOBIN 29.6 PG (27.0-31.0); MEAN CORPUSCULAR HGB CONC 31.5 g/dL (33.0-36.5); MEAN PLATELET VOLUME 9.7 FL (7.4-10.4); MONOCYTES # (AUTO) 0.9 X10'3 (0-0.9); MONOCYTES % (AUTO) 6.8 % (2-12); NEUTROPHILS # (AUTO) 11.7 X10'3 (1.8-7.7); PLATELET COUNT 188 X10'3 (140-440); RED CELL DISTRIBUTION WIDTH 17.6 % (11.5-14.5); WHITE BLOOD COUNT 13.8 X10'3 (4.5-11.0)
--- NOTE | 2022-02-18 06:29 | NUR ---
Change of shift report given to BECK Douglas. Issues reprioritized. Pt stable. No acute complaints.
[2022-02-18 06:47] LABS: ALANINE AMINOTRANSFERASE 226 U/L (12-78); ALBUMIN 2.4 G/DL (3.4-5.0); ALKALINE PHOSPHATASE 126 IU/L (46-116); ANION GAP 15 (8-16); ASPARTATE AMINO TRANSFERASE 126 U/L (10-37); BILIRUBIN,TOTAL 0.5 MG/DL (0.1-1.0); BLOOD UREA NITROGEN 68 MG/DL (7-18); BUN/CREATININE RATIO 15.2 (5.4-32.0); CHLORIDE 108 MMOL/L (99-107); CREATININE 4.47 MG/DL (0.60-1.10); GLUCOSE 138 MG/DL (70-104); MAGNESIUM 1.6 MG/DL (1.5-2.4); PHOSPHORUS 4.9 MG/DL (2.3-4.5); SODIUM 140 MMOL/L (135-145); TOTAL CARBON DIOXIDE 17.1 MMOL/L (24-32); TOTAL PROTEIN 4.9 G/DL (6.4-8.2); eGFR 13 ML/MIN
[2022-02-18] MEDS: labetalol 100mg tablet PO SCH (07:03)
--- NOTE | 2022-02-18 07:07 | NUR ---
Paged MD Colbert for HR parameters in regards to Diltiazem CD and Amiodarone. HR has been 49 sustained since yesterday AM. Notified that Trandate will be held secondary to soft BP's since yesterday. Awaiting communication back from . page as follows. (PT Mort, Joselito 1484-a need parameters for HR for diltiazem and amiodarone. HR has been 49 since yesterday. Trandate will be held today secondary to soft BP. Please advise. Stella SHANKS ext [phone])
[2022-02-18] MEDS: docusate sod 100mg capsule PO SCH ×2 (08:00→19:27)
[2022-02-18] MEDS: diltiazem CD 180mg cap (once-daily) PO SCH (08:00)
[2022-02-18] MEDS: K and/or MAG REPLACEMENT MC SCH ×2 (08:00→19:27)
[2022-02-18] MEDS: amiodarone 200mg tablet PO SCH (08:00)
[2022-02-18] MEDS: atorvastatin 20mg tablet PO SCH (08:44)
[2022-02-18] MEDS: vitamin E 400 unit capsule PO SCH (08:45)
[2022-02-18] MEDS: HYDROcodone/acetaminophen 10/325mg tab PO PRN ×2 (08:45→15:41)
[2022-02-18] MEDS: ezetimibe 10mg tablet PO SCH (08:45)
[2022-02-18] MEDS: cinacalcet 30mg tablet PO SCH (08:45)
--- NOTE | 2022-02-18 09:45 | NUR ---
Reviewed HR meds with Radha Cardiac INVESTIGATIVE ANALYST. She stated to hold the Cardiazem CD and give the Amiodarone. Continue to monitor
[2022-02-18 11:02] VITALS: BP 91/57
--- NOTE | 2022-02-18 11:20 | NUR ---
Received orders from Dr. Colbert to discontinue Cardiazem and Labetalol but to continue Amiodarone.
[2022-02-18] MEDS: fenofibrate 145mg tablet PO SCH (11:45)
[2022-02-18] MEDS ORDERED: LIDOcaine 2% 10ml TOPICAL JELLY (Urojet) TP ONE (12:00)
[2022-02-18] MEDS: pantoprazole 40mg Tablet.DR PO SCH ×2 (13:16→17:41)
[2022-02-18 16:04] VITALS: BP 96/55
--- NOTE | 2022-02-18 16:48 | NUR ---
PT adamantly refuses Zepeda catheter.
[2022-02-18 18:00] VITALS: BP 94/61
[2022-02-18] MEDS: insulin Lispro (HumaLOG) vial - multi-dose SQ SCH (18:56)
[2022-02-18] MEDS: sodium ferric gluc complex inj 125 MG in normal saline 100ml IV soln 100 ML IV SCH (20:26)
[2022-02-18] MEDS: insulin glargine (Lantus) pen - multi-dose SQ SCH (20:46)
[2022-02-18 22:00] VITALS: BP 98/61
[2022-02-18] MEDS: ipratropium/albuterol 3ml nebule NEB SCH (22:38)
[2022-02-19 02:00] VITALS: BP 93/60
[2022-02-19] MEDS: ipratropium/albuterol 3ml nebule NEB SCH ×6 (02:47→23:09)
[2022-02-19 06:00] VITALS: BP 94/56
--- NOTE | 2022-02-19 06:26 | NUR ---
Change of shift Report given to BECK Macias. Issues Reprioritized. Pt stable. No acute complaints.
[2022-02-19 06:44] LABS: BASOPHILS % (AUTO) 0.3 % (0-1); EOSINOPHILS # (AUTO) 0.3 X10'3 (0-0.9); EOSINOPHILS % (AUTO) 3.2 % (0-6); HEMATOCRIT 24.7 % (42.0-52.0); HEMOGLOBIN 7.9 g/dl (14.0-17.9); LYMPHOCYTES # (AUTO) 0.8 X10'3 (1.1-4.8); LYMPHOCYTES % (AUTO) 8.3 % (21-51); MEAN CORPUSCULAR HEMOGLOBIN 31.2 PG (27.0-31.0); MEAN CORPUSCULAR HGB CONC 32.1 g/dL (33.0-36.5); MEAN CORPUSCULAR VOLUME 97.4 FL (78-98); MEAN PLATELET VOLUME 9.6 FL (7.4-10.4); MONOCYTES # (AUTO) 0.7 X10'3 (0-0.9); MONOCYTES % (AUTO) 7.2 % (2-12); NEUTROPHILS # (AUTO) 8.2 X10'3 (1.8-7.7); PLATELET COUNT 164 X10'3 (140-440); RED BLOOD COUNT 2.53 X10'6 (4.70-6.10); RED CELL DISTRIBUTION WIDTH 18.6 % (11.5-14.5); WHITE BLOOD COUNT 10.1 X10'3 (4.5-11.0)
[2022-02-19 07:14] LABS: ALANINE AMINOTRANSFERASE 203 U/L (12-78); ALBUMIN 2.4 G/DL (3.4-5.0); ALBUMIN/GLOBULIN RATIO 0.9 (1.1-1.5); ALKALINE PHOSPHATASE 139 IU/L (46-116); ANION GAP 15 (8-16); ASPARTATE AMINO TRANSFERASE 72 U/L (10-37); BILIRUBIN,TOTAL 0.5 MG/DL (0.1-1.0); BLOOD UREA NITROGEN 67 MG/DL (7-18); BUN/CREATININE RATIO 14.7 (5.4-32.0); CALCIUM 7.2 MG/DL (8.5-10.1); CHLORIDE 107 MMOL/L (99-107); CREATININE 4.57 MG/DL (0.60-1.10); GLUCOSE 124 MG/DL (70-104); MAGNESIUM 1.7 MG/DL (1.5-2.4); PHOSPHORUS 4.5 MG/DL (2.3-4.5); POTASSIUM 3.7 MMOL/L (3.5-5.1); SODIUM 139 MMOL/L (135-145); TOTAL CARBON DIOXIDE 16.6 MMOL/L (24-32); TOTAL PROTEIN 5.2 G/DL (6.4-8.2); eGFR 12 ML/MIN
--- NOTE | 2022-02-19 07:26 | NUR ---
Patient in room PCU 3014A. I have received report from BECK WILHELM and had the opportunity to ask questions and assume patient care.
[2022-02-19] MEDS: K and/or MAG REPLACEMENT MC SCH ×2 (08:00→20:00)
--- NOTE | 2022-02-19 08:04 | NUR ---
HOLDING BP MEDS DUE LOW BP, DR POLANCO AWAITING CALL BACK
[2022-02-19] MEDS: vitamin E 400 unit capsule PO SCH (08:18)
[2022-02-19] MEDS: ezetimibe 10mg tablet PO SCH (08:18)
[2022-02-19] MEDS: pantoprazole 40mg Tablet.DR PO SCH ×2 (08:18→17:41)
[2022-02-19] MEDS: cinacalcet 30mg tablet PO SCH (08:18)
[2022-02-19] MEDS: docusate sod 100mg capsule PO SCH ×2 (08:18→20:23)
[2022-02-19] MEDS: fenofibrate 145mg tablet PO SCH (08:18)
[2022-02-19] MEDS: atorvastatin 20mg tablet PO SCH (08:19)
[2022-02-19] MEDS: amiodarone 200mg tablet PO SCH (08:21)
[2022-02-19] MEDS ORDERED: DOBUTamine-DoBUTrex 500mg/D5W 250 ML IV SCH (09:30)
--- NOTE | 2022-02-19 09:45 | NUR ---
Problems reprioritized. Patient report given, questions answered & plan of care reviewed with BECK MAYER.
--- NOTE | 2022-02-19 09:45 | NUR ---
Patient in room PCU 3014. I have received report from BECK SINGER, and had the opportunity to ask questions and assume patient care.
[2022-02-19] MEDS: furosemide 20 MG/2 ML vial IV SCH ×2 (09:51→20:23)
[2022-02-19 11:00] VITALS: BP 94/59
[2022-02-19] MEDS: insulin Lispro (HumaLOG) vial - multi-dose SQ SCH ×2 (14:21→18:56)
[2022-02-19 15:00] VITALS: BP 97/62
[2022-02-19 18:30] VITALS: BP 95/67
--- NOTE | 2022-02-19 18:35 | NUR ---
Problems reprioritized. Patient report given, questions answered & plan of care reviewed with BECK ABREU.
[2022-02-19] MEDS: sodium ferric gluc complex inj 125 MG in normal saline 100ml IV soln 100 ML IV SCH (21:14)
[2022-02-19] MEDS: insulin glargine (Lantus) pen - multi-dose SQ SCH (21:17)
[2022-02-19 22:00] VITALS: BP 103/66
[2022-02-20 02:00] VITALS: BP 98/57
[2022-02-20] MEDS: ipratropium/albuterol 3ml nebule NEB SCH ×6 (02:52→23:26)
--- NOTE | 2022-02-20 06:24 | NUR ---
Problems reprioritized. Patient report given, questions answered & plan of care reviewed with Rina. Addendum: 02/20/22 at 0624 by Isak Ingram RN Amended: Links added.
[2022-02-20 06:56] LABS: BASOPHILS % (AUTO) 0.2 % (0-1); EOSINOPHILS # (AUTO) 0.3 X10'3 (0-0.9); EOSINOPHILS % (AUTO) 3.9 % (0-6); HEMATOCRIT 23.7 % (42.0-52.0); HEMOGLOBIN 7.6 g/dl (14.0-17.9); LYMPHOCYTES # (AUTO) 0.9 X10'3 (1.1-4.8); LYMPHOCYTES % (AUTO) 10.3 % (21-51); MEAN CORPUSCULAR HGB CONC 32.3 g/dL (33.0-36.5); MEAN CORPUSCULAR VOLUME 95.9 FL (78-98); MEAN PLATELET VOLUME 9.6 FL (7.4-10.4); MONOCYTES # (AUTO) 0.7 X10'3 (0-0.9); MONOCYTES % (AUTO) 8.1 % (2-12); NEUTROPHILS # (AUTO) 6.6 X10'3 (1.8-7.7); NEUTROPHILS % (AUTO) 77.5 % (42-75); PLATELET COUNT 146 X10'3 (140-440); RED BLOOD COUNT 2.47 X10'6 (4.70-6.10); RED CELL DISTRIBUTION WIDTH 17.4 % (11.5-14.5); WHITE BLOOD COUNT 8.6 X10'3 (4.5-11.0)
[2022-02-20 07:00] VITALS: BP 103/67
[2022-02-20 07:16] LABS: ALANINE AMINOTRANSFERASE 156 U/L (12-78); ALBUMIN 2.4 G/DL (3.4-5.0); ALBUMIN/GLOBULIN RATIO 0.9 (1.1-1.5); ALKALINE PHOSPHATASE 128 IU/L (46-116); ANION GAP 12 (8-16); ASPARTATE AMINO TRANSFERASE 42 U/L (10-37); BILIRUBIN,TOTAL 0.5 MG/DL (0.1-1.0); BLOOD UREA NITROGEN 69 MG/DL (7-18); BUN/CREATININE RATIO 13.9 (5.4-32.0); CALCIUM 7.5 MG/DL (8.5-10.1); CHLORIDE 106 MMOL/L (99-107); CREATININE 4.95 MG/DL (0.60-1.10); GLUCOSE 91 MG/DL (70-104); MAGNESIUM 1.6 MG/DL (1.5-2.4); PHOSPHORUS 4.5 MG/DL (2.3-4.5); POTASSIUM 3.5 MMOL/L (3.5-5.1); SODIUM 138 MMOL/L (135-145); TOTAL CARBON DIOXIDE 19.8 MMOL/L (24-32); TOTAL PROTEIN 5.2 G/DL (6.4-8.2); eGFR 11 ML/MIN
--- NOTE | 2022-02-20 07:54 | NUR ---
Reassessment; Pt continues on Heart Healthy diet w/ good PO intake, mostly 75-100% of meals meeting est nutrient needs. Recommend liberalizing to Regular diet given age and low lipids. LBM 6/6 receiving routine colace. No nutrition intervention implemented at this time, will continue to monitor. Recommendations: 1) Liberalize to regular diet; monitor electrolytes and need for renal restriction 2) Bowel care per MD 3) Weekly scaled weights Addendum: 02/20/22 at [address] Amended: Links added.
--- NOTE | 2022-02-20 07:59 | NUR ---
page to [facility] cardiology [id number] Mort. PT just went into afib with HR 90-120s. Rina@[phone]
[2022-02-20] MEDS: K and/or MAG REPLACEMENT MC SCH ×2 (08:00→20:00)
[2022-02-20] MEDS: pantoprazole 40mg Tablet.DR PO SCH ×2 (08:16→17:14)
[2022-02-20] MEDS: insulin Lispro (HumaLOG) vial - multi-dose SQ SCH ×2 (08:16→13:29)
[2022-02-20] MEDS: docusate sod 100mg capsule PO SCH ×2 (08:17→20:38)
[2022-02-20] MEDS: cinacalcet 30mg tablet PO SCH (08:17)
[2022-02-20] MEDS: furosemide 20 MG/2 ML vial IV SCH (08:18)
[2022-02-20] MEDS: amiodarone 200mg tablet PO SCH (08:18)
[2022-02-20] MEDS: ezetimibe 10mg tablet PO SCH (08:18)
[2022-02-20] MEDS: atorvastatin 20mg tablet PO SCH (08:18)
[2022-02-20] MEDS: vitamin E 400 unit capsule PO SCH (08:18)
[2022-02-20] MEDS: fenofibrate 145mg tablet PO SCH (08:18)
[2022-02-20 08:28] LABS: CLARITY,URINE CLOUDY (Clear); COLOR,URINE YELLOW (Yellow); GLUCOSE, URINE NEGATIVE (Neg); KETONES,URINE NEGATIVE (Neg); LEUKOCYTE ESTERASE ,URINE MODERATE (Neg); NITRITES, URINE NEGATIVE (Neg); OCCULT BLOOD,URINE TRACE-INTACT (Neg); PROTEIN,URINE TRACE mg/dl (Neg); UROBILINOGEN,URINE 0.2 E.U/dL (0.2-1.0)
[2022-02-20 08:31] LABS: TOTAL PROTEIN,URINE RANDOM 36.3 MG/DL
[2022-02-20 08:32] LABS: UA COLLECTION TYPE CLN CATCH MIDSTREAM
[2022-02-20 08:35] LABS: HYALINE CASTS 0-3 /LPF (NEGATIVE); SQUAMOUS EPITHELIAL CELL,UR FEW /LPF (FEW)
[2022-02-20 08:36] LABS: BACTERIA,URINE FEW /HPF (Neg); MUCUS STRANDS FEW /LPF (Neg); RBC,URINE 0-2 /HPF (0-2)
[2022-02-20] MEDS: diltiazem 30mg tablet PO SCH ×3 (09:09→20:38)
[2022-02-20 09:21] LABS: UA EOSINOPHILS NO EOS /HPF
--- NOTE | 2022-02-20 09:50 | NUR ---
procrit given late because pharmacy had not brought it up yet this am
[2022-02-20] MEDS: epoetin 20,000 units/ml inj SQ SCH (09:52)
[2022-02-20 11:00] VITALS: BP 99/33
[2022-02-20 15:00] VITALS: BP 96/66
--- NOTE | 2022-02-20 16:39 | NUR ---
patient c/o redness irritation in groin - barrier cream applied WOC consult ordered
[2022-02-20 18:00] VITALS: BP 101/69
--- NOTE | 2022-02-20 18:12 | NUR ---
Problems reprioritized. Patient report given, questions answered & plan of care reviewed with Vicente RN. Patient resting in bed in no acute distress.
--- NOTE | 2022-02-20 18:21 | NUR ---
I called Dr. Serna and left a message notifiying him that pt has fistula in L arm +thrill/bruit. I am not sure he is aware and may not need TDC placement.
--- NOTE | 2022-02-20 18:23 | NUR ---
Dr. Serna returned my call and would like the fiberglass product tester to assess fistula to make sure there is no need for TDC.
--- NOTE | 2022-02-20 18:26 | NUR ---
I talked with Selena the HD RN rica, she is not on site, but is aware pt has fistula and will come and assess it first thing tomorrow.
[2022-02-20] MEDS: insulin glargine (Lantus) pen - multi-dose SQ SCH (20:38)
[2022-02-20] MEDS: sodium ferric gluc complex inj 125 MG in normal saline 100ml IV soln 100 ML IV SCH (21:30)
[2022-02-20 22:00] VITALS: BP 104/63
[2022-02-21] VITALS (7 sets, daily range): BP systolic 94–140; BP diastolic 51–80
[2022-02-21] MEDS: diltiazem 30mg tablet PO SCH ×4 (02:00→20:28)
[2022-02-21] MEDS: ipratropium/albuterol 3ml nebule NEB SCH ×6 (02:47→22:59)
[2022-02-21 06:48] LABS: BASOPHILS % (AUTO) 0.4 % (0-1); EOSINOPHILS # (AUTO) 0.3 X10'3 (0-0.9); EOSINOPHILS % (AUTO) 3.3 % (0-6); HEMATOCRIT 22.6 % (42.0-52.0); HEMOGLOBIN 7.4 g/dl (14.0-17.9); LYMPHOCYTES # (AUTO) 0.7 X10'3 (1.1-4.8); LYMPHOCYTES % (AUTO) 8.5 % (21-51); MEAN CORPUSCULAR HEMOGLOBIN 30.9 PG (27.0-31.0); MEAN CORPUSCULAR HGB CONC 32.7 g/dL (33.0-36.5); MEAN CORPUSCULAR VOLUME 94.4 FL (78-98); MEAN PLATELET VOLUME 10.3 FL (7.4-10.4); MONOCYTES # (AUTO) 0.6 X10'3 (0-0.9); MONOCYTES % (AUTO) 7.3 % (2-12); NEUTROPHILS # (AUTO) 6.6 X10'3 (1.8-7.7); NEUTROPHILS % (AUTO) 80.5 % (42-75); PLATELET COUNT 140 X10'3 (140-440); RED BLOOD COUNT 2.39 X10'6 (4.70-6.10); RED CELL DISTRIBUTION WIDTH 17.2 % (11.5-14.5); WHITE BLOOD COUNT 8.2 X10'3 (4.5-11.0)
[2022-02-21 07:06] LABS: ALANINE AMINOTRANSFERASE 114 U/L (12-78); ALBUMIN 2.4 G/DL (3.4-5.0); ALBUMIN/GLOBULIN RATIO 0.9 (1.1-1.5); ALKALINE PHOSPHATASE 120 IU/L (46-116); ANION GAP 11 (8-16); ASPARTATE AMINO TRANSFERASE 28 U/L (10-37); BLOOD UREA NITROGEN 68 MG/DL (7-18); CALCIUM 7.4 MG/DL (8.5-10.1); CHLORIDE 106 MMOL/L (99-107); CREATININE 4.84 MG/DL (0.60-1.10); GLUCOSE 99 MG/DL (70-104); MAGNESIUM 1.6 MG/DL (1.5-2.4); PHOSPHORUS 4.5 MG/DL (2.3-4.5); POTASSIUM 3.1 MMOL/L (3.5-5.1); SODIUM 137 MMOL/L (135-145); TOTAL CARBON DIOXIDE 19.9 MMOL/L (24-32); TOTAL PROTEIN 5.2 G/DL (6.4-8.2); eGFR 12 ML/MIN
--- NOTE | 2022-02-21 07:30 | NUR ---
Called acting section chief vision care associate, spoke with Denise. Sanderson she should be here within an hour to check on function of LA fistula. Addendum: 02/21/22 at 0922 by Micaela Loya RN Updated IR
[2022-02-21 07:41] LABS: BILIRUBIN,TOTAL 0.5 MG/DL (0.1-1.0)
--- NOTE | 2022-02-21 07:42 | NUR ---
Spoke with Micaela SOLARES for patient. Asked her to please call and let Angio know if the dialysis nurse is able to access the fistula.
[2022-02-21] MEDS: K and/or MAG REPLACEMENT MC SCH ×2 (08:00→19:53)
[2022-02-21] MEDS ORDERED: EPOETIN ALFA-EPBX 20,000 UNIT/ML 1 ML MDV IV ONE (08:00)
[2022-02-21] MEDS ORDERED: heparin 1,000 units/ml 10ml inj HE ONE ×2 (08:00)
[2022-02-21] MEDS ORDERED: heparin 1,000unit/ml 10ml vial 10 ML IV ONE (08:00)
[2022-02-21] MEDS ORDERED: normal saline 1000ml 250 ML IV PRN (08:00)
[2022-02-21] MEDS: atorvastatin 20mg tablet PO SCH (09:03)
[2022-02-21] MEDS: amiodarone 200mg tablet PO SCH (09:03)
[2022-02-21] MEDS: vitamin E 400 unit capsule PO SCH (09:03)
[2022-02-21] MEDS: ezetimibe 10mg tablet PO SCH (09:04)
[2022-02-21] MEDS: cinacalcet 30mg tablet PO SCH (09:04)
[2022-02-21] MEDS: fenofibrate 145mg tablet PO SCH (09:04)
[2022-02-21] MEDS: docusate sod 100mg capsule PO SCH ×2 (09:04→20:28)
[2022-02-21] MEDS: HYDROcodone/acetaminophen 5mg/325mg tablet PO PRN (09:06)
[2022-02-21] MEDS: pantoprazole 40mg Tablet.DR PO SCH ×2 (09:12→16:45)
[2022-02-21] MEDS: insulin Lispro (HumaLOG) vial - multi-dose SQ SCH (09:20)
[2022-02-21] MEDS ORDERED: LIDOcaine 1% (10mg/ml) 2ml vial SQ ONE (10:00)
[2022-02-21] MEDS ORDERED: LIDOcaine 1% (10mg/ml) 2ml vial ONE (10:00)
--- NOTE | 2022-02-21 10:15 | NUR ---
PIV inserted with ultrasound however vert hard to thread and attempted 4 times with a 22g successful. 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 IV dc'd and pressure applied until hemostasis. insurance job titles aware. Addendum: 02/21/22 at 1018 by Crystal Oliva RN Amended: Links added.
--- NOTE | 2022-02-21 10:30 | NUR ---
Dialysis is in room now.
--- NOTE | 2022-02-21 11:36 | NUR ---
Per Selena tree feller operator, the patient's fistula is accessed and working properly. Patient does not need TDC at this time. Micaela SOLARES aware.
--- NOTE | 2022-02-21 12:09 | NUR ---
PAGER ID: [phone] MESSAGE: Joselito Javier [phone] Low on potassium- 3.1. Unsure if you want me to replace since renal fx so low but nothing ordered. Do you want me to ask Meng? Micaela [phone]
--- NOTE | 2022-02-21 13:36 | NUR ---
PRESSURE ULCER EDUCATION: DEFINITION: A pressure ulcer is an area of skin that breaks down when you stay in one position too long. The constant pressure against the skin reduces the blood flow to that area and the affected tissue dies. CAUSES: "Being bedridden or in a wheelchair "Fragile skin "Having a chronic condition, such as diabetes or vascular disease "Inability to move certain parts of your body without assistance "Older age "Incontinence of urine or stool SYMPTOMS: "A reddened area that DOES NOT turn white when pressed on - this can be the beginning of a pressure ulcer "A blister, deep sore or a crater - these can be advanced pressure ulcers FIRST AID: "Relieve the pressure on this area "Keep the area clean and dry "Call your primary doctor if you see any of the above symptoms "DO NOT massage the area "DO NOT use a donut shaped or ring shaped pillow- these actually interfere with the blood flow and cause complications PREVENTION: "Check for pressure ulcers everyday "Change position at least every two hours to relieve pressure "Use items that help relieve pressure- pillows, sheepskin, foam padding, and powders. "Keep skin clean and dry "Eat healthy well balanced meals "Exercise daily IF YOU SEE ANY OF THESE SYMPTOMS WHILE IN THE HOSPITAL - TELL YOUR NURSE IMMEDIATELY. IF YOU SEE ANY OF THESE SYMPTOMS WHILE AT HOME OR HAVE ANY QUESTIONS OR CONCERNS ABOUT PRESSURE ULCERS - CALL YOUR PRIMARY DOCTOR IMMEDIATELY. Addendum: 02/21/22 at 1336 by Stella Farooq LVN Amended: Links added.
--- NOTE | 2022-02-21 15:59 | NUR ---
Pt's son visiting at this time. Pt. would like to hold off on suppository for now. Addendum: 02/21/22 at 1603 by Micaela Loya RN Disregard - BECK mistake
--- NOTE | 2022-02-21 16:14 | NUR ---
Called lab to have them draw K lab
--- NOTE | 2022-02-21 16:41 | NUR ---
Dr. Fan rounding on floor and assessed pt. States not to replace k related to it is being monitored and adjusted with dialysis. Plan for dialysis tomorrow again with a 4.0 k bath. Selena RN on applications support analyst made aware.
--- NOTE | 2022-02-21 18:39 | NUR ---
GAVE REPORT TO VALARIE SOLARES
[2022-02-21] MEDS: insulin glargine (Lantus) pen - multi-dose SQ SCH (21:10)
[2022-02-21] MEDS: nystatin 15 GM powder TP SCH (21:15)
[2022-02-21] MEDS: sodium ferric gluc complex inj 125 MG in normal saline 100ml IV soln 100 ML IV SCH (21:33)
[2022-02-22 02:00] VITALS: BP 106/55
[2022-02-22] MEDS: diltiazem 30mg tablet PO SCH ×4 (02:00→19:07)
[2022-02-22] MEDS: ipratropium/albuterol 3ml nebule NEB SCH ×5 (02:55→19:00)
[2022-02-22 06:00] VITALS: BP 145/84
[2022-02-22 07:02] LABS: BASOPHILS % (AUTO) 0.3 % (0-1); EOSINOPHILS # (AUTO) 0.3 X10'3 (0-0.9); EOSINOPHILS % (AUTO) 2.9 % (0-6); HEMATOCRIT 23.8 % (42.0-52.0); HEMOGLOBIN 7.7 g/dl (14.0-17.9); LYMPHOCYTES # (AUTO) 0.7 X10'3 (1.1-4.8); LYMPHOCYTES % (AUTO) 7.9 % (21-51); MEAN CORPUSCULAR HEMOGLOBIN 30.6 PG (27.0-31.0); MEAN CORPUSCULAR HGB CONC 32.3 g/dL (33.0-36.5); MEAN CORPUSCULAR VOLUME 94.7 FL (78-98); MONOCYTES # (AUTO) 0.8 X10'3 (0-0.9); MONOCYTES % (AUTO) 8.5 % (2-12); NEUTROPHILS # (AUTO) 7.2 X10'3 (1.8-7.7); NEUTROPHILS % (AUTO) 80.4 % (42-75); PLATELET COUNT 133 X10'3 (140-440); RED BLOOD COUNT 2.51 X10'6 (4.70-6.10); RED CELL DISTRIBUTION WIDTH 18.1 % (11.5-14.5)
[2022-02-22 07:13] LABS: ALANINE AMINOTRANSFERASE 87 U/L (12-78); ALBUMIN 2.3 G/DL (3.4-5.0); ALBUMIN/GLOBULIN RATIO 0.8 (1.1-1.5); ALKALINE PHOSPHATASE 111 IU/L (46-116); ANION GAP 11 (8-16); ASPARTATE AMINO TRANSFERASE 22 U/L (10-37); BILIRUBIN,TOTAL 0.5 MG/DL (0.1-1.0); BLOOD UREA NITROGEN 56 MG/DL (7-18); BUN/CREATININE RATIO 14.1 (5.4-32.0); CALCIUM 7.4 MG/DL (8.5-10.1); CHLORIDE 106 MMOL/L (99-107); CREATININE 3.97 MG/DL (0.60-1.10); GLUCOSE 121 MG/DL (70-104); MAGNESIUM 1.6 MG/DL (1.5-2.4); POTASSIUM 3.5 MMOL/L (3.5-5.1); SODIUM 141 MMOL/L (135-145); TOTAL CARBON DIOXIDE 23.6 MMOL/L (24-32); TOTAL PROTEIN 5.3 G/DL (6.4-8.2); eGFR 15 ML/MIN
[2022-02-22] MEDS ORDERED: LIDOcaine 1% (10mg/ml) 2ml vial SQ ONE (07:40)
[2022-02-22] MEDS ORDERED: EPOETIN ALFA-EPBX 20,000 UNIT/ML 1 ML MDV IV ONE (07:40)
[2022-02-22] MEDS ORDERED: heparin 1,000 units/ml 10ml inj IV ONE (07:40)
[2022-02-22] MEDS ORDERED: normal saline 1000ml 250 ML IV PRN (07:40)
[2022-02-22] MEDS: K and/or MAG REPLACEMENT MC SCH ×2 (08:00→18:47)
[2022-02-22] MEDS: insulin Lispro (HumaLOG) vial - multi-dose SQ SCH ×3 (08:39→19:04)
[2022-02-22] MEDS: cinacalcet 30mg tablet PO SCH (08:40)
[2022-02-22] MEDS: amiodarone 200mg tablet PO SCH (08:41)
[2022-02-22] MEDS: ezetimibe 10mg tablet PO SCH (08:41)
[2022-02-22] MEDS: vitamin E 400 unit capsule PO SCH (08:41)
[2022-02-22] MEDS: docusate sod 100mg capsule PO SCH ×2 (08:41→19:07)
[2022-02-22] MEDS: pantoprazole 40mg Tablet.DR PO SCH ×2 (08:41→16:33)
[2022-02-22] MEDS: atorvastatin 20mg tablet PO SCH (08:41)
[2022-02-22] MEDS: fenofibrate 145mg tablet PO SCH (08:41)
[2022-02-22] MEDS: nystatin 15 GM powder TP SCH ×3 (08:42→21:00)
[2022-02-22 11:00] VITALS: BP 121/71
[2022-02-22 12:11] LABS: HBSAG SCREEN Negative (Negative)
--- NOTE | 2022-02-22 14:25 | NUR ---
PAGER ID: [phone] MESSAGE: Room: 3014A: FYI: the dialysis nurse was unable to cannulate the pt's AV fistula. No dialysis was completed. Dr. Fan has been informed. BECK Chavez [phone]
[2022-02-22 15:00] VITALS: BP 126/81
[2022-02-22 18:00] VITALS: BP 124/71
[2022-02-22] MEDS ORDERED: ipratropium/albuterol 3ml nebule NEB PRN (19:45)
[2022-02-22] MEDS: insulin glargine (Lantus) pen - multi-dose SQ SCH (21:15)
[2022-02-22] MEDS: sodium ferric gluc complex inj 125 MG in normal saline 100ml IV soln 100 ML IV SCH (21:17)
[2022-02-22 22:00] VITALS: BP 107/75
[2022-02-23 02:00] VITALS: BP 125/81
[2022-02-23] MEDS: diltiazem 30mg tablet PO SCH ×4 (02:58→20:36)
[2022-02-23 06:21] LABS: BASOPHILS % (AUTO) 0.1 % (0-1); EOSINOPHILS # (AUTO) 0.2 X10'3 (0-0.9); EOSINOPHILS % (AUTO) 1.5 % (0-6); LYMPHOCYTES # (AUTO) 0.6 X10'3 (1.1-4.8); LYMPHOCYTES % (AUTO) 4.5 % (21-51); MEAN CORPUSCULAR HEMOGLOBIN 30.4 PG (27.0-31.0); MEAN PLATELET VOLUME 9.7 FL (7.4-10.4); MONOCYTES % (AUTO) 6.9 % (2-12); PLATELET COUNT 115 X10'3 (140-440); RED BLOOD COUNT 2.63 X10'6 (4.70-6.10); RED CELL DISTRIBUTION WIDTH 18.9 % (11.5-14.5); WHITE BLOOD COUNT 13.8 X10'3 (4.5-11.0)
--- NOTE | 2022-02-23 06:35 | NUR ---
Problems reprioritized. Patient report given, questions answered & plan of care reviewed with
--- NOTE | 2022-02-23 06:48 | NUR ---
Patient in room PCU 3014. I have received report from Ruiz SOLARES and had the opportunity to ask questions and assume patient care.
[2022-02-23 06:54] LABS: ALANINE AMINOTRANSFERASE 68 U/L (12-78); ALBUMIN 2.3 G/DL (3.4-5.0); ALBUMIN/GLOBULIN RATIO 0.7 (1.1-1.5); ALKALINE PHOSPHATASE 103 IU/L (46-116); ANION GAP 11 (8-16); ASPARTATE AMINO TRANSFERASE 21 U/L (10-37); BILIRUBIN,TOTAL 0.5 MG/DL (0.1-1.0); BLOOD UREA NITROGEN 60 MG/DL (7-18); BUN/CREATININE RATIO 14.6 (5.4-32.0); CALCIUM 7.3 MG/DL (8.5-10.1); CHLORIDE 104 MMOL/L (99-107); CREATININE 4.12 MG/DL (0.60-1.10); GLUCOSE 61 MG/DL (70-104); MAGNESIUM 1.6 MG/DL (1.5-2.4); PHOSPHORUS 4.2 MG/DL (2.3-4.5); POTASSIUM 3.8 MMOL/L (3.5-5.1); SODIUM 136 MMOL/L (135-145); TOTAL CARBON DIOXIDE 21.2 MMOL/L (24-32); TOTAL PROTEIN 5.5 G/DL (6.4-8.2); eGFR 14 ML/MIN
[2022-02-23 07:14] VITALS: BP 118/56
[2022-02-23 07:28] LABS: PLATELET ESTIMATE DECREASED
[2022-02-23 07:29] LABS: ACANTHOCYTES 1+; ANISOCYTOSIS 2+; ELLIPTOCYTES 1+; HYPOCHROMASIA 2+
[2022-02-23] MEDS: amiodarone 200mg tablet PO SCH (07:41)
[2022-02-23] MEDS: fenofibrate 145mg tablet PO SCH (07:41)
[2022-02-23] MEDS: cinacalcet 30mg tablet PO SCH (07:44)
[2022-02-23] MEDS: pantoprazole 40mg Tablet.DR PO SCH ×2 (07:44→17:46)
[2022-02-23] MEDS: docusate sod 100mg capsule PO SCH ×2 (07:44→20:36)
[2022-02-23] MEDS: vitamin E 400 unit capsule PO SCH (07:44)
[2022-02-23] MEDS: atorvastatin 20mg tablet PO SCH (07:44)
[2022-02-23] MEDS: ezetimibe 10mg tablet PO SCH (07:45)
[2022-02-23] MEDS ORDERED: normal saline 1000ml 250 ML IV PRN (08:00)
[2022-02-23] MEDS ORDERED: LIDOcaine 1% (10mg/ml) 2ml vial SQ ONE (08:00)
[2022-02-23] MEDS ORDERED: heparin 1,000 units/ml 10ml inj IV ONE (08:00)
[2022-02-23] MEDS ORDERED: EPOETIN ALFA-EPBX 20,000 UNIT/ML 1 ML MDV IV ONE (08:00)
[2022-02-23] MEDS: K and/or MAG REPLACEMENT MC SCH ×2 (08:00→20:00)
[2022-02-23] MEDS: nystatin 15 GM powder TP SCH ×3 (08:00→20:41)
[2022-02-23] MEDS ORDERED: CefTRIAXone 2gm/NS 100ml IVPB 100 ML IV ONE (09:25)
[2022-02-23 09:53] LABS: BASOPHILS # (AUTO) 0.1 X10'3 (0-0.2); BASOPHILS % (AUTO) 0.9 % (0-1); EOSINOPHILS # (AUTO) 0.2 X10'3 (0-0.9); EOSINOPHILS % (AUTO) 1.3 % (0-6); HEMATOCRIT 26.9 % (42.0-52.0); HEMOGLOBIN 8.5 g/dl (14.0-17.9); LYMPHOCYTES # (AUTO) 0.5 X10'3 (1.1-4.8); LYMPHOCYTES % (AUTO) 3.9 % (21-51); MEAN CORPUSCULAR HEMOGLOBIN 30.8 PG (27.0-31.0); MEAN CORPUSCULAR HGB CONC 31.7 g/dL (33.0-36.5); MEAN PLATELET VOLUME 9.9 FL (7.4-10.4); MONOCYTES # (AUTO) 0.8 X10'3 (0-0.9); MONOCYTES % (AUTO) 6.7 % (2-12); NEUTROPHILS # (AUTO) 10.6 X10'3 (1.8-7.7); NEUTROPHILS % (AUTO) 87.2 % (42-75); PLATELET COUNT 137 X10'3 (140-440); RED BLOOD COUNT 2.77 X10'6 (4.70-6.10); RED CELL DISTRIBUTION WIDTH 19.7 % (11.5-14.5); WHITE BLOOD COUNT 12.1 X10'3 (4.5-11.0)
[2022-02-23 11:00] VITALS: BP 136/46
--- NOTE | 2022-02-23 14:47 | NUR ---
vascular study done to patients left arm positive for thrombus per software support technician. Dr ward paged. order given for heparin SQ BID will continue to monitor
[2022-02-23 15:00] VITALS: BP 134/67
[2022-02-23] MEDS: heparin, porcine 5000 units/ml vial SQ SCH ×2 (15:10→20:36)
[2022-02-23 18:00] VITALS: BP 138/100
--- NOTE | 2022-02-23 18:25 | NUR ---
Patient in room PCU 3014. I have received report from Alicia SOLARES and had the opportunity to ask questions and assume patient care.
--- NOTE | 2022-02-23 18:36 | NUR ---
Problems reprioritized. Patient report given, questions answered & plan of care reviewed with Charis SOLARES.
[2022-02-23] MEDS: insulin glargine (Lantus) pen - multi-dose SQ SCH (21:00)
[2022-02-23] MEDS: sodium ferric gluc complex inj 125 MG in normal saline 100ml IV soln 100 ML IV SCH (21:07)
[2022-02-23] MEDS: doxycycline inj 100 MG in normal saline 100ml IV soln 100 ML IV SCH (21:26)
[2022-02-23 22:00] VITALS: BP 115/76
[2022-02-24] MEDS: diltiazem 30mg tablet PO SCH ×4 (01:53→20:01)
[2022-02-24 02:00] VITALS: BP 113/62
[2022-02-24 06:00] VITALS: BP 91/59
--- NOTE | 2022-02-24 06:35 | NUR ---
Problems reprioritized. Patient report given, questions answered & plan of care reviewed with daiana SOLARES.
[2022-02-24] MEDS: nystatin 15 GM powder TP SCH ×3 (08:00→21:00)
[2022-02-24] MEDS: docusate sod 100mg capsule PO SCH ×2 (08:00→20:01)
[2022-02-24] MEDS: K and/or MAG REPLACEMENT MC SCH ×2 (08:00→20:00)
[2022-02-24] MEDS: heparin, porcine 5000 units/ml vial SQ SCH ×2 (09:26→20:02)
[2022-02-24] MEDS: atorvastatin 20mg tablet PO SCH (09:26)
[2022-02-24] MEDS: HYDROcodone/acetaminophen 10/325mg tab PO PRN ×3 (09:26→22:07)
[2022-02-24] MEDS: fenofibrate 145mg tablet PO SCH (09:27)
[2022-02-24] MEDS: ezetimibe 10mg tablet PO SCH (09:27)
[2022-02-24] MEDS: cinacalcet 30mg tablet PO SCH (09:27)
[2022-02-24] MEDS: doxycycline inj 100 MG in normal saline 100ml IV soln 100 ML IV SCH ×2 (09:27→19:56)
[2022-02-24] MEDS: amiodarone 200mg tablet PO SCH (09:27)
[2022-02-24] MEDS: pantoprazole 40mg Tablet.DR PO SCH ×2 (09:30→16:31)
[2022-02-24] MEDS: vitamin E 400 unit capsule PO SCH (09:30)
[2022-02-24 09:35] LABS: BASOPHILS % (AUTO) 0.3 % (0-1); EOSINOPHILS # (AUTO) 0.1 X10'3 (0-0.9); EOSINOPHILS % (AUTO) 1.3 % (0-6); HEMATOCRIT 25.9 % (42.0-52.0); HEMOGLOBIN 8.3 g/dl (14.0-17.9); LYMPHOCYTES # (AUTO) 0.6 X10'3 (1.1-4.8); LYMPHOCYTES % (AUTO) 5.8 % (21-51); MEAN CORPUSCULAR HGB CONC 32.2 g/dL (33.0-36.5); MEAN CORPUSCULAR VOLUME 96.2 FL (78-98); MEAN PLATELET VOLUME 10.4 FL (7.4-10.4); MONOCYTES # (AUTO) 0.9 X10'3 (0-0.9); MONOCYTES % (AUTO) 8.9 % (2-12); NEUTROPHILS # (AUTO) 8.4 X10'3 (1.8-7.7); NEUTROPHILS % (AUTO) 83.7 % (42-75); PLATELET COUNT 142 X10'3 (140-440); RED BLOOD COUNT 2.69 X10'6 (4.70-6.10); RED CELL DISTRIBUTION WIDTH 18.4 % (11.5-14.5); WHITE BLOOD COUNT 10.1 X10'3 (4.5-11.0)
[2022-02-24 10:01] LABS: ALANINE AMINOTRANSFERASE 51 U/L (12-78); ALBUMIN 2.2 G/DL (3.4-5.0); ALBUMIN/GLOBULIN RATIO 0.7 (1.1-1.5); ALKALINE PHOSPHATASE 97 IU/L (46-116); ANION GAP 11 (8-16); ASPARTATE AMINO TRANSFERASE 18 U/L (10-37); BILIRUBIN,TOTAL 0.6 MG/DL (0.1-1.0); BLOOD UREA NITROGEN 69 MG/DL (7-18); BUN/CREATININE RATIO 15.5 (5.4-32.0); CALCIUM 7.4 MG/DL (8.5-10.1); CHLORIDE 100 MMOL/L (99-107); CREATININE 4.46 MG/DL (0.60-1.10); GLUCOSE 214 MG/DL (70-104); POTASSIUM 4.2 MMOL/L (3.5-5.1); SODIUM 132 MMOL/L (135-145); TOTAL CARBON DIOXIDE 20.6 MMOL/L (24-32); TOTAL PROTEIN 5.4 G/DL (6.4-8.2); eGFR 13 ML/MIN
[2022-02-24] MEDS ORDERED: normal saline 1000ml 250 ML IV PRN (10:25)
[2022-02-24] MEDS ORDERED: EPOETIN ALFA-EPBX 20,000 UNIT/ML 1 ML MDV IV ONE (10:25)
[2022-02-24] MEDS ORDERED: heparin 1,000 units/ml 10ml inj IV ONE (10:25)
[2022-02-24] MEDS ORDERED: LIDOcaine 1% (10mg/ml) 2ml vial SQ ONE (10:25)
[2022-02-24 11:00] VITALS: BP 95/59
--- NOTE | 2022-02-24 14:35 | NUR ---
Notified MD Colbert that news library director notified me that his fistula is poorly functional and she was only able to dialyze him 1 hr. news library director also notified me that she notified Water Tester in charge of Dialysis,
[2022-02-24 15:00] VITALS: BP_SYST 112; BP_SYST 114; BP_DIAS 65; BP_DIAS 74
[2022-02-24] MEDS: sodium ferric gluc complex inj 125 MG in normal saline 100ml IV soln 100 ML IV SCH (20:33)
[2022-02-24] MEDS: insulin glargine (Lantus) pen - multi-dose SQ SCH (20:54)
[2022-02-25] MEDS: diltiazem 30mg tablet PO SCH ×4 (02:00→19:29)
[2022-02-25 06:00] VITALS: BP 111/53
[2022-02-25] MEDS: K and/or MAG REPLACEMENT MC SCH ×2 (08:00→20:00)
[2022-02-25] MEDS: pantoprazole 40mg Tablet.DR PO SCH ×2 (10:02→16:27)
[2022-02-25] MEDS: docusate sod 100mg capsule PO SCH ×2 (10:03→19:29)
[2022-02-25] MEDS: amiodarone 200mg tablet PO SCH (10:04)
[2022-02-25] MEDS: atorvastatin 20mg tablet PO SCH (10:05)
[2022-02-25] MEDS: cinacalcet 30mg tablet PO SCH (10:11)
[2022-02-25] MEDS: fenofibrate 145mg tablet PO SCH (10:12)
[2022-02-25] MEDS: ezetimibe 10mg tablet PO SCH (10:13)
[2022-02-25] MEDS: vitamin E 400 unit capsule PO SCH (10:13)
[2022-02-25] MEDS: heparin, porcine 5000 units/ml vial SQ SCH ×2 (10:14→19:30)
[2022-02-25] MEDS: nystatin 15 GM powder TP SCH ×3 (10:15→21:48)
[2022-02-25 10:46] LABS: BASOPHILS % (AUTO) 0.6 % (0-1); EOSINOPHILS # (AUTO) 0.3 X10'3 (0-0.9); EOSINOPHILS % (AUTO) 3.2 % (0-6); HEMATOCRIT 26.5 % (42.0-52.0); HEMOGLOBIN 8.5 g/dl (14.0-17.9); LYMPHOCYTES # (AUTO) 0.6 X10'3 (1.1-4.8); LYMPHOCYTES % (AUTO) 7.2 % (21-51); MEAN CORPUSCULAR HEMOGLOBIN 30.9 PG (27.0-31.0); MEAN CORPUSCULAR HGB CONC 31.9 g/dL (33.0-36.5); MEAN PLATELET VOLUME 9.7 FL (7.4-10.4); MONOCYTES # (AUTO) 0.8 X10'3 (0-0.9); MONOCYTES % (AUTO) 10.6 % (2-12); NEUTROPHILS # (AUTO) 6.1 X10'3 (1.8-7.7); NEUTROPHILS % (AUTO) 78.4 % (42-75); PLATELET COUNT 145 X10'3 (140-440); RED BLOOD COUNT 2.73 X10'6 (4.70-6.10); RED CELL DISTRIBUTION WIDTH 18.6 % (11.5-14.5); WHITE BLOOD COUNT 7.8 X10'3 (4.5-11.0)
[2022-02-25 11:11] LABS: ALANINE AMINOTRANSFERASE 42 U/L (12-78); ALBUMIN 2.2 G/DL (3.4-5.0); ALBUMIN/GLOBULIN RATIO 0.7 (1.1-1.5); ALKALINE PHOSPHATASE 91 IU/L (46-116); ANION GAP 10 (8-16); ASPARTATE AMINO TRANSFERASE 17 U/L (10-37); BILIRUBIN,TOTAL 0.5 MG/DL (0.1-1.0); BLOOD UREA NITROGEN 69 MG/DL (7-18); BUN/CREATININE RATIO 15.9 (5.4-32.0); CALCIUM 7.4 MG/DL (8.5-10.1); CHLORIDE 100 MMOL/L (99-107); CREATININE 4.34 MG/DL (0.60-1.10); GLUCOSE 189 MG/DL (70-104); SODIUM 133 MMOL/L (135-145); TOTAL CARBON DIOXIDE 23.4 MMOL/L (24-32); TOTAL PROTEIN 5.4 G/DL (6.4-8.2); eGFR 13 ML/MIN
[2022-02-25] MEDS: doxycycline inj 100 MG in normal saline 100ml IV soln 100 ML IV SCH ×2 (11:45→19:33)
--- NOTE | 2022-02-25 12:32 | NUR ---
Problems reprioritized. Patient report given, questions answered & plan of care reviewed with gerda nicole.
[2022-02-25 12:49] VITALS: BP 118/68
[2022-02-25 15:59] VITALS: BP 136/51
[2022-02-25 18:00] VITALS: BP 173/83
--- NOTE | 2022-02-25 18:33 | NUR ---
Gave report to Mahad SOLARES.
[2022-02-25] MEDS: insulin glargine (Lantus) pen - multi-dose SQ SCH (21:00)
[2022-02-25] MEDS: sodium ferric gluc complex inj 125 MG in normal saline 100ml IV soln 100 ML IV SCH (21:40)
[2022-02-25] MEDS ORDERED: sucralfate 1 gm tablet PO PRN (21:55)
[2022-02-26] VITALS (7 sets, daily range): BP systolic 104–190; BP diastolic 34–89
[2022-02-26] MEDS: diltiazem 30mg tablet PO SCH ×4 (02:15→19:51)
[2022-02-26] MEDS: HYDROcodone/acetaminophen 10/325mg tab PO PRN ×2 (02:18→21:36)
--- NOTE | 2022-02-26 06:23 | NUR ---
Problems reprioritized. Patient report given, questions answered & plan of care reviewed with BECK Chavez.
[2022-02-26] MEDS: doxycycline inj 100 MG in normal saline 100ml IV soln 100 ML IV SCH ×3 (07:24→19:42)
[2022-02-26] MEDS: pantoprazole 40mg Tablet.DR PO SCH ×2 (07:37→17:03)
[2022-02-26] MEDS: amiodarone 200mg tablet PO SCH (07:38)
[2022-02-26] MEDS: atorvastatin 20mg tablet PO SCH (07:38)
[2022-02-26] MEDS: cinacalcet 30mg tablet PO SCH (07:38)
[2022-02-26] MEDS: vitamin E 400 unit capsule PO SCH (07:38)
[2022-02-26] MEDS: ezetimibe 10mg tablet PO SCH (07:38)
[2022-02-26] MEDS: fenofibrate 145mg tablet PO SCH (07:38)
[2022-02-26] MEDS: docusate sod 100mg capsule PO SCH ×2 (07:38→19:51)
[2022-02-26] MEDS: HYDROcodone/acetaminophen 5mg/325mg tablet PO PRN (07:39)
[2022-02-26] MEDS: nystatin 15 GM powder TP SCH ×3 (07:39→21:22)
[2022-02-26] MEDS: heparin, porcine 5000 units/ml vial SQ SCH ×3 (07:39→19:52)
[2022-02-26] MEDS: K and/or MAG REPLACEMENT MC SCH ×2 (08:00→20:00)
[2022-02-26 08:16] LABS: BASOPHILS # (AUTO) 0.1 X10'3 (0-0.2); BASOPHILS % (AUTO) 0.8 % (0-1); EOSINOPHILS # (AUTO) 0.3 X10'3 (0-0.9); EOSINOPHILS % (AUTO) 3.7 % (0-6); HEMATOCRIT 27.2 % (42.0-52.0); HEMOGLOBIN 8.9 g/dl (14.0-17.9); LYMPHOCYTES % (AUTO) 11.8 % (21-51); MEAN CORPUSCULAR HEMOGLOBIN 31.1 PG (27.0-31.0); MEAN CORPUSCULAR HGB CONC 32.6 g/dL (33.0-36.5); MEAN CORPUSCULAR VOLUME 95.4 FL (78-98); MEAN PLATELET VOLUME 9.7 FL (7.4-10.4); MONOCYTES # (AUTO) 0.9 X10'3 (0-0.9); MONOCYTES % (AUTO) 10.4 % (2-12); NEUTROPHILS # (AUTO) 6.5 X10'3 (1.8-7.7); NEUTROPHILS % (AUTO) 73.3 % (42-75); PLATELET COUNT 180 X10'3 (140-440); RED BLOOD COUNT 2.85 X10'6 (4.70-6.10); RED CELL DISTRIBUTION WIDTH 18.3 % (11.5-14.5); WHITE BLOOD COUNT 8.8 X10'3 (4.5-11.0)
--- NOTE | 2022-02-26 08:51 | NUR ---
Reassessment; Pt continues on Heart Healthy diet w/ good PO intake, mostly 75-100% of meals meeting est nutrient needs. Noted that pt's diet order has been completed, TC to RN recommendation for Regular diet given age and low lipids. There appears to be some issues w/ HD access per MD note. LBM 02/25 receiving routine colace. No nutrition intervention implemented at this time, will continue to monitor. Recommendations: 1) Liberalize to regular diet; monitor electrolytes and need for renal restriction 2) Bowel care per MD 3) Weekly scaled weights Addendum: 02/26/22 at [address] Amended: Links added.
[2022-02-26 08:54] LABS: ALBUMIN 2.3 G/DL (3.4-5.0); ANION GAP 11 (8-16); BLOOD UREA NITROGEN 74 MG/DL (7-18); BUN/CREATININE RATIO 16.3 (5.4-32.0); CALCIUM 7.6 MG/DL (8.5-10.1); CHLORIDE 103 MMOL/L (99-107); CREATININE 4.55 MG/DL (0.60-1.10); GLUCOSE 125 MG/DL (70-104); POTASSIUM 4.1 MMOL/L (3.5-5.1); SODIUM 136 MMOL/L (135-145); TOTAL CARBON DIOXIDE 21.7 MMOL/L (24-32); eGFR 13 ML/MIN
--- NOTE | 2022-02-26 18:26 | NUR ---
Patient in room PCU 3014. I have received report from BECK Chavez and had the opportunity to ask questions and assume patient care.
[2022-02-26] MEDS: insulin glargine (Lantus) pen - multi-dose SQ SCH (21:00)
--- NOTE | 2022-02-26 21:30 | NUR ---
Stopped Vibramycin per pharmacist due to burning. Half has been infused. Patient is to start PO in AM
[2022-02-26] MEDS: sodium ferric gluc complex inj 125 MG in normal saline 100ml IV soln 100 ML IV SCH (21:41)
[2022-02-27] MEDS: diltiazem 30mg tablet PO SCH ×4 (02:00→19:44)
[2022-02-27 02:31] VITALS: BP 103/46
--- NOTE | 2022-02-27 06:36 | NUR ---
report given to BECK Bustillos
[2022-02-27] MEDS: pantoprazole 40mg Tablet.DR PO SCH ×2 (07:00→17:00)
[2022-02-27] MEDS: heparin, porcine 5000 units/ml vial SQ SCH ×2 (08:00→19:44)
[2022-02-27] MEDS: docusate sod 100mg capsule PO SCH ×2 (08:00→19:44)
[2022-02-27] MEDS: K and/or MAG REPLACEMENT MC SCH ×2 (08:00→20:00)
[2022-02-27] MEDS ORDERED: heparin 1,000unit/ml 10ml vial 10 ML ONE (08:20)
[2022-02-27] MEDS ORDERED: LIDOcaine 1%/PF 5ML 10 MG/ML VIAL ONE ×2 (08:20→09:18)
[2022-02-27] MEDS ORDERED: fentaNYL/PF 50MCG/1 ML 2ML syringe ONE (08:21)
[2022-02-27] MEDS ORDERED: midazolam 1 mg/ML 2ml injection ONE (08:21)
[2022-02-27] MEDS: cinacalcet 30mg tablet PO SCH (08:31)
[2022-02-27] MEDS: ezetimibe 10mg tablet PO SCH (08:31)
[2022-02-27] MEDS: vitamin E 400 unit capsule PO SCH (08:31)
[2022-02-27] MEDS: fenofibrate 145mg tablet PO SCH (08:31)
[2022-02-27] MEDS: atorvastatin 20mg tablet PO SCH (08:31)
[2022-02-27] MEDS: amiodarone 200mg tablet PO SCH (08:31)
[2022-02-27] MEDS: nystatin 15 GM powder TP SCH ×3 (08:32→21:00)
[2022-02-27 08:41] LABS: BASOPHILS # (AUTO) 0.1 X10'3 (0-0.2); BASOPHILS % (AUTO) 0.8 % (0-1); EOSINOPHILS # (AUTO) 0.3 X10'3 (0-0.9); EOSINOPHILS % (AUTO) 3.9 % (0-6); HEMATOCRIT 26.9 % (42.0-52.0); HEMOGLOBIN 8.6 g/dl (14.0-17.9); LYMPHOCYTES % (AUTO) 12.3 % (21-51); MEAN CORPUSCULAR HGB CONC 31.9 g/dL (33.0-36.5); MEAN CORPUSCULAR VOLUME 97.4 FL (78-98); MEAN PLATELET VOLUME 9.5 FL (7.4-10.4); MONOCYTES # (AUTO) 0.8 X10'3 (0-0.9); MONOCYTES % (AUTO) 9.8 % (2-12); NEUTROPHILS # (AUTO) 5.7 X10'3 (1.8-7.7); NEUTROPHILS % (AUTO) 73.2 % (42-75); PLATELET COUNT 188 X10'3 (140-440); RED BLOOD COUNT 2.77 X10'6 (4.70-6.10); RED CELL DISTRIBUTION WIDTH 17.8 % (11.5-14.5); WHITE BLOOD COUNT 7.8 X10'3 (4.5-11.0)
[2022-02-27] MEDS: DOXYCYCLINE 100MG CAPSULE PO SCH ×2 (08:52→18:02)
[2022-02-27 09:07] LABS: ALANINE AMINOTRANSFERASE 34 U/L (12-78)
[2022-02-27 09:09] LABS: ALBUMIN 2.3 G/DL (3.4-5.0); ALBUMIN/GLOBULIN RATIO 0.7 (1.1-1.5); ALKALINE PHOSPHATASE 81 IU/L (46-116); ANION GAP 14 (8-16); ASPARTATE AMINO TRANSFERASE 17 U/L (10-37); BILIRUBIN,TOTAL 0.5 MG/DL (0.1-1.0); BLOOD UREA NITROGEN 76 MG/DL (7-18); BUN/CREATININE RATIO 16.4 (5.4-32.0); CALCIUM 7.6 MG/DL (8.5-10.1); CHLORIDE 102 MMOL/L (99-107); CREATININE 4.63 MG/DL (0.60-1.10); GLUCOSE 106 MG/DL (70-104); MAGNESIUM 1.6 MG/DL (1.5-2.4); PHOSPHORUS 4.4 MG/DL (2.3-4.5); POTASSIUM 3.8 MMOL/L (3.5-5.1); SODIUM 137 MMOL/L (135-145); TOTAL CARBON DIOXIDE 20.7 MMOL/L (24-32); TOTAL PROTEIN 5.6 G/DL (6.4-8.2); eGFR 12 ML/MIN
--- NOTE | 2022-02-27 11:56 | NUR ---
PAGER ID: [phone] MESSAGE: [id number] Joselito Javier Can this patient eat and drink fluid now that he had his TDC? Please advise Tressa gallardo [phone]
[2022-02-27] MEDS ORDERED: LIDOcaine 1% (10mg/ml) 2ml vial SQ ONE (13:00)
[2022-02-27] MEDS ORDERED: heparin 1,000 units/ml 10ml inj IV ONE (13:00)
[2022-02-27] MEDS ORDERED: heparin 1,000 units/ml 10ml inj HE ONE ×2 (13:05)
[2022-02-27] MEDS ORDERED: EPOETIN ALFA-EPBX 20,000 UNIT/ML 1 ML MDV IV ONE (13:15)
[2022-02-27 18:00] VITALS: BP 115/61
--- NOTE | 2022-02-27 18:50 | NUR ---
Talked with Dr. Serna to let him know the patient had phlebitis and his IV in his shoulder was infiltrated, painful and red and D/C'd. Dr Serna said to DC the Ferrlicit because the patient had enough doses. Patient has no IV and limited places for access
[2022-02-27] MEDS: insulin glargine (Lantus) pen - multi-dose SQ SCH (21:00)
[2022-02-27 22:00] VITALS: BP_SYST 129; BP_SYST 98; BP_DIAS 60; BP_DIAS 65
[2022-02-28] MEDS: diltiazem 30mg tablet PO SCH ×4 (03:13→20:46)
[2022-02-28 03:15] VITALS: BP 122/65
[2022-02-28 06:00] VITALS: BP 87/52
--- NOTE | 2022-02-28 06:25 | NUR ---
Problems reprioritized. Patient report given, questions answered & plan of care reviewed with BECK Castrejon.
--- NOTE | 2022-02-28 06:25 | NUR ---
Problems reprioritized. Patient report given, questions answered & plan of care reviewed with BECK Arriaza.
--- NOTE | 2022-02-28 06:30 | NUR ---
Patient in room PCU 3014. I have received report from BECK Tobin and had the opportunity to ask questions and assume patient care.
[2022-02-28 06:31] LABS: BASOPHILS # (AUTO) 0.1 X10'3 (0-0.2); BASOPHILS % (AUTO) 0.8 % (0-1); EOSINOPHILS # (AUTO) 0.2 X10'3 (0-0.9); EOSINOPHILS % (AUTO) 2.7 % (0-6); HEMATOCRIT 25.8 % (42.0-52.0); HEMOGLOBIN 8.3 g/dl (14.0-17.9); LYMPHOCYTES # (AUTO) 0.8 X10'3 (1.1-4.8); MEAN CORPUSCULAR HEMOGLOBIN 30.8 PG (27.0-31.0); MEAN CORPUSCULAR VOLUME 96.3 FL (78-98); MEAN PLATELET VOLUME 9.6 FL (7.4-10.4); MONOCYTES # (AUTO) 0.6 X10'3 (0-0.9); MONOCYTES % (AUTO) 8.3 % (2-12); NEUTROPHILS # (AUTO) 5.5 X10'3 (1.8-7.7); NEUTROPHILS % (AUTO) 77.2 % (42-75); PLATELET COUNT 199 X10'3 (140-440); RED BLOOD COUNT 2.68 X10'6 (4.70-6.10); RED CELL DISTRIBUTION WIDTH 17.9 % (11.5-14.5); WHITE BLOOD COUNT 7.1 X10'3 (4.5-11.0)
[2022-02-28 06:52] LABS: ALANINE AMINOTRANSFERASE 28 U/L (12-78); ALBUMIN 2.2 G/DL (3.4-5.0); ALBUMIN/GLOBULIN RATIO 0.7 (1.1-1.5); ALKALINE PHOSPHATASE 80 IU/L (46-116); ANION GAP 13 (8-16); ASPARTATE AMINO TRANSFERASE 22 U/L (10-37); BILIRUBIN,TOTAL 0.5 MG/DL (0.1-1.0); BLOOD UREA NITROGEN 52 MG/DL (7-18); BUN/CREATININE RATIO 14.7 (5.4-32.0); CALCIUM 7.7 MG/DL (8.5-10.1); CHLORIDE 102 MMOL/L (99-107); CREATININE 3.53 MG/DL (0.60-1.10); GLUCOSE 129 MG/DL (70-104); MAGNESIUM 1.6 MG/DL (1.5-2.4); PHOSPHORUS 3.3 MG/DL (2.3-4.5); POTASSIUM 3.7 MMOL/L (3.5-5.1); SODIUM 138 MMOL/L (135-145); TOTAL CARBON DIOXIDE 23.4 MMOL/L (24-32); TOTAL PROTEIN 5.5 G/DL (6.4-8.2); eGFR 17 ML/MIN
[2022-02-28] MEDS ORDERED: EPOETIN ALFA-EPBX 20,000 UNIT/ML 1 ML MDV IV ONE (08:00)
[2022-02-28] MEDS: K and/or MAG REPLACEMENT MC SCH ×2 (08:00→20:00)
[2022-02-28] MEDS ORDERED: heparin 1,000unit/ml 10ml vial 10 ML IV ONE (08:00)
[2022-02-28] MEDS ORDERED: heparin 1,000 units/ml 10ml inj HE ONE ×2 (08:00)
[2022-02-28] MEDS ORDERED: normal saline 1000ml 250 ML IV PRN (08:00)
[2022-02-28] MEDS: ezetimibe 10mg tablet PO SCH (09:29)
[2022-02-28] MEDS: DOXYCYCLINE 100MG CAPSULE PO SCH ×2 (09:29→20:46)
[2022-02-28] MEDS: pantoprazole 40mg Tablet.DR PO SCH ×2 (09:29→20:46)
[2022-02-28] MEDS: fenofibrate 145mg tablet PO SCH (09:29)
[2022-02-28] MEDS: cinacalcet 30mg tablet PO SCH (09:29)
[2022-02-28] MEDS: docusate sod 100mg capsule PO SCH ×2 (09:29→20:47)
[2022-02-28] MEDS: vitamin E 400 unit capsule PO SCH (09:29)
[2022-02-28] MEDS: atorvastatin 20mg tablet PO SCH (09:30)
[2022-02-28] MEDS: amiodarone 200mg tablet PO SCH (09:30)
[2022-02-28] MEDS: heparin, porcine 5000 units/ml vial SQ SCH ×2 (09:30→20:50)
[2022-02-28] MEDS: nystatin 15 GM powder TP SCH ×3 (09:30→21:53)
[2022-02-28 11:00] VITALS: BP 117/60
[2022-02-28] MEDS ORDERED: PANT40TA54 PO (12:31)
[2022-02-28] MEDS ORDERED: IPRA3AMP9 NEB (12:31)
[2022-02-28] MEDS ORDERED: DOXY-224 PO (12:31)
[2022-02-28] MEDS ORDERED: DILT30TA2 PO (12:31)
[2022-02-28 15:00] VITALS: BP 113/69
--- NOTE | 2022-02-28 18:25 | NUR ---
Patient in room PCU 3014A. I have received report from BECK Castrejon and had the opportunity to ask questions and assume patient care.
--- NOTE | 2022-02-28 18:30 | NUR ---
Problems reprioritized. Patient report given, questions answered & plan of care reviewed with BECK العراقي.
[2022-02-28 19:45] VITALS: BP 108/63
[2022-02-28] MEDS: insulin glargine (Lantus) pen - multi-dose SQ SCH (21:00)
[2022-02-28 21:56] VITALS: BP 120/58
[2022-03-01] MEDS: diltiazem 30mg tablet PO SCH ×3 (02:00→13:50)
[2022-03-01 02:09] VITALS: BP 99/54
[2022-03-01 06:00] VITALS: BP 129/67
--- NOTE | 2022-03-01 06:19 | NUR ---
Problems reprioritized. Patient report given, questions answered & plan of care reviewed with BECK Castrejon.
[2022-03-01 06:30] LABS: BASOPHILS # (AUTO) 0.1 X10'3 (0-0.2); EOSINOPHILS # (AUTO) 0.2 X10'3 (0-0.9); EOSINOPHILS % (AUTO) 2.4 % (0-6); HEMATOCRIT 27.7 % (42.0-52.0); HEMOGLOBIN 8.9 g/dl (14.0-17.9); LYMPHOCYTES # (AUTO) 1.1 X10'3 (1.1-4.8); LYMPHOCYTES % (AUTO) 14.2 % (21-51); MEAN CORPUSCULAR HEMOGLOBIN 30.2 PG (27.0-31.0); MEAN CORPUSCULAR HGB CONC 31.9 g/dL (33.0-36.5); MEAN CORPUSCULAR VOLUME 94.6 FL (78-98); MEAN PLATELET VOLUME 9.4 FL (7.4-10.4); MONOCYTES # (AUTO) 0.7 X10'3 (0-0.9); MONOCYTES % (AUTO) 9.2 % (2-12); NEUTROPHILS # (AUTO) 5.6 X10'3 (1.8-7.7); NEUTROPHILS % (AUTO) 73.2 % (42-75); PLATELET COUNT 218 X10'3 (140-440); RED BLOOD COUNT 2.93 X10'6 (4.70-6.10); WHITE BLOOD COUNT 7.6 X10'3 (4.5-11.0)
--- NOTE | 2022-03-01 06:41 | NUR ---
Patient in room PCU 3014. I have received report from BECK العراقي and had the opportunity to ask questions and assume patient care.
[2022-03-01 07:30] LABS: ALANINE AMINOTRANSFERASE 30 U/L (12-78); ALBUMIN 2.5 G/DL (3.4-5.0); ALBUMIN/GLOBULIN RATIO 0.7 (1.1-1.5); ALKALINE PHOSPHATASE 88 IU/L (46-116); ANION GAP 13 (8-16); ASPARTATE AMINO TRANSFERASE 21 U/L (10-37); BILIRUBIN,TOTAL 0.6 MG/DL (0.1-1.0); BLOOD UREA NITROGEN 33 MG/DL (7-18); BUN/CREATININE RATIO 12.2 (5.4-32.0); CHLORIDE 102 MMOL/L (99-107); CREATININE 2.71 MG/DL (0.60-1.10); GLUCOSE 161 MG/DL (70-104); MAGNESIUM 1.6 MG/DL (1.5-2.4); PHOSPHORUS 2.6 MG/DL (2.3-4.5); POTASSIUM 3.9 MMOL/L (3.5-5.1); SODIUM 140 MMOL/L (135-145); TOTAL PROTEIN 5.9 G/DL (6.4-8.2); eGFR 23 ML/MIN
[2022-03-01] MEDS: nystatin 15 GM powder TP SCH ×2 (08:00→13:00)
[2022-03-01] MEDS: K and/or MAG REPLACEMENT MC SCH (08:00)
[2022-03-01] MEDS: docusate sod 100mg capsule PO SCH (08:00)
[2022-03-01] MEDS: vitamin E 400 unit capsule PO SCH (08:18)
[2022-03-01] MEDS: cinacalcet 30mg tablet PO SCH (08:18)
[2022-03-01] MEDS: amiodarone 200mg tablet PO SCH (08:19)
[2022-03-01] MEDS: ezetimibe 10mg tablet PO SCH (08:19)
[2022-03-01] MEDS: fenofibrate 145mg tablet PO SCH (08:19)
[2022-03-01] MEDS: heparin, porcine 5000 units/ml vial SQ SCH (08:19)
[2022-03-01] MEDS: atorvastatin 20mg tablet PO SCH (08:19)
[2022-03-01] MEDS: DOXYCYCLINE 100MG CAPSULE PO SCH (08:19)
[2022-03-01] MEDS: pantoprazole 40mg Tablet.DR PO SCH (08:21)
[2022-03-01 11:00] VITALS: BP 109/51
--- NOTE | 2022-03-01 14:57 | NUR ---
Pt discharged to [facility] with all belongings. Report called to Mallory. Orders faxed by case management prior to transport. Pt transported via gurney.
== END 2022-03-01 14:53 | DRG 377 ==
LOC: ER 14:53 → ED HOLD 21:52 → PCU 3S 23:20 → UNDODISIN 02-23 17:31 → PCU 3S 02-23 18:49
PROVIDERS: ADMIT Family Medicine; ATTEND Family Medicine
PROC: 0DJ08ZZ Inspection of Upper Intestinal Tract, Via Natural or Artificial Opening Endoscopic (ICD-10-PCS; 2022-02-14)
PROC: 0DBH8ZX Excision of Cecum, Via Natural or Artificial Opening Endoscopic, Diagnostic (ICD-10-PCS; 2022-02-16)
PROC: 30233N1 Transfusion of Nonautologous Red Blood Cells into Peripheral Vein, Percutaneous Approach (ICD-10-PCS; principal; 2022-02-17)
PROC: 5A1D70Z Performance of Urinary Filtration, Intermittent, Less than 6 Hours Per Day (ICD-10-PCS; 2022-02-21)
PROC: 5A1D70Z Performance of Urinary Filtration, Intermittent, Less than 6 Hours Per Day (ICD-10-PCS; 2022-02-22)
PROC: 5A1D70Z Performance of Urinary Filtration, Intermittent, Less than 6 Hours Per Day (ICD-10-PCS; 2022-02-24)
PROC: 0JH63XZ Insertion of Tunneled Vascular Access Device into Chest Subcutaneous Tissue and Fascia, Percutaneous Approach (ICD-10-PCS; 2022-02-27)
PROC: 02H633Z Insertion of Infusion Device into Right Atrium, Percutaneous Approach (ICD-10-PCS; 2022-02-27)
PROC: B548ZZA Ultrasonography of Superior Vena Cava, Guidance (ICD-10-PCS; 2022-02-27)
PROC: B5181ZA Fluoroscopy of Superior Vena Cava using Low Osmolar Contrast, Guidance (ICD-10-PCS; 2022-02-27)
PROC: 5A1D70Z Performance of Urinary Filtration, Intermittent, Less than 6 Hours Per Day (ICD-10-PCS; 2022-02-27)
PROC: 5A1D70Z Performance of Urinary Filtration, Intermittent, Less than 6 Hours Per Day (ICD-10-PCS; 2022-02-28)
DX: K29.71 Gastritis, unspecified, with bleeding (principal); J96.01 Acute respiratory failure with hypoxia; N17.0 Acute kidney failure with tubular necrosis; E87.2 Acidosis; N18.4 Chronic kidney disease, stage 4 (severe); I82.611 Acute embolism and thrombosis of superficial veins of right upper extremity; I82.721 Chronic embolism and thrombosis of deep veins of right upper extremity; D68.9 Coagulation defect, unspecified; I13.0 Hypertensive heart and chronic kidney disease with heart failure and stage 1 through stage 4 chronic kidney disease, or unspecified chronic kidney disease; Z66 Do not resuscitate; E11.22 Type 2 diabetes mellitus with diabetic chronic kidney disease; K44.9 Diaphragmatic hernia without obstruction or gangrene; E78.5 Hyperlipidemia, unspecified; E87.6 Hypokalemia; E78.00 Pure hypercholesterolemia, unspecified; Z20.822 Contact with and (suspected) exposure to COVID-19; K62.89 Other specified diseases of anus and rectum; K57.30 Diverticulosis of large intestine without perforation or abscess without bleeding; I80.8 Phlebitis and thrombophlebitis of other sites; Z60.2 Problems related to living alone; D50.0 Iron deficiency anemia secondary to blood loss (chronic); K22.2 Esophageal obstruction; I25.10 Atherosclerotic heart disease of native coronary artery without angina pectoris; M19.90 Unspecified osteoarthritis, unspecified site; I50.9 Heart failure, unspecified; K21.9 Gastro-esophageal reflux disease without esophagitis; I08.1 Rheumatic disorders of both mitral and tricuspid valves; R01.1 Cardiac murmur, unspecified; K63.5 Polyp of colon; D63.8 Anemia in other chronic diseases classified elsewhere; I48.0 Paroxysmal atrial fibrillation; I27.20 Pulmonary hypertension, unspecified; R00.1 Bradycardia, unspecified; I95.9 Hypotension, unspecified; I27.81 Cor pulmonale (chronic); K57.90 Diverticulosis of intestine, part unspecified, without perforation or abscess without bleeding; Z53.20 Procedure and treatment not carried out because of patient's decision for unspecified reasons; Z79.01 Long term (current) use of anticoagulants; Z79.899 Other long term (current) drug therapy; Z91.14 Patient's other noncompliance with medication regimen; Z28.310 Unvaccinated for COVID-19; Z95.3 Presence of xenogenic heart valve; Z95.5 Presence of coronary angioplasty implant and graft; Z88.8 Allergy status to other drugs, medicaments and biological substances; Z86.14 Personal history of Methicillin resistant Staphylococcus aureus infection
CPT/HCPCS: 36415; 36430; 36558; 43235; 45380; 71045; 76937; 77001; 80048; 80053; 80061; 81001; 82272; 82570; 82728; 82948; 83036; 83540; 83550; 83605; 83735; 83880; 84100; 84132; 84145; 84156; 84300; 85008; 85025; 85027; 86885; 86900; 86901; 86920; 87040; 87081; 87088; 87207; 87340; 88305; 93005; 93306; 93971; 94640; 94664; 94668; 94760; 97110; 97116; 97161; 97530; 99152; 99153; 99285; A4615; A4620; A6213; A6250; A6402; A6449; C9113; G0257; G0378; J0604; J1250; J1644; J1815; J1940; J2250; J2916; J3010; J3490; J7030; J7040; J7168; P9016; Q4081

== ENCOUNTER 2022-04-26 09:58 | Emergency (ER) | payer MEDICARE, MEDICAID ==
[~2022-04-26] VITALS: Ht 167.6 cm; Wt 77.3 kg
[~2022-04-26 09:58] MED LIST changes: -ASCO125T PO; -ASPI-845 PO; -DILT180C89 PO; +DILT30TA2 PO; +DOXY-224 PO; -GLIM2TAB6 PO; +IPRA3AMP9 NEB; -LABE100T5 PO; +LABE100T8 PO; +PANT40TA54 PO
[2022-04-26 11:01] LABS: BASOPHILS # (AUTO) 0.1 X10'3 (0-0.2); BASOPHILS % (AUTO) 0.8 % (0-1); EOSINOPHILS # (AUTO) 0.1 X10'3 (0-0.9); EOSINOPHILS % (AUTO) 1.5 % (0-6); HEMATOCRIT 34.1 % (42.0-52.0); LYMPHOCYTES # (AUTO) 0.9 X10'3 (1.1-4.8); LYMPHOCYTES % (AUTO) 12.2 % (21-51); MEAN CORPUSCULAR HEMOGLOBIN 31.8 PG (27.0-31.0); MEAN CORPUSCULAR HGB CONC 32.1 g/dL (33.0-36.5); MEAN CORPUSCULAR VOLUME 98.8 FL (78-98); MEAN PLATELET VOLUME 10.7 FL (7.4-10.4); MONOCYTES # (AUTO) 0.6 X10'3 (0-0.9); MONOCYTES % (AUTO) 7.8 % (2-12); NEUTROPHILS # (AUTO) 5.6 X10'3 (1.8-7.7); NEUTROPHILS % (AUTO) 77.7 % (42-75); PLATELET COUNT 199 X10'3 (140-440); RED BLOOD COUNT 3.45 X10'6 (4.70-6.10); RED CELL DISTRIBUTION WIDTH 20.8 % (11.5-14.5); WHITE BLOOD COUNT 7.2 X10'3 (4.5-11.0)
[2022-04-26 11:32] LABS: ALANINE AMINOTRANSFERASE 23 U/L (12-78); ALBUMIN/GLOBULIN RATIO 0.8 (1.1-1.5); ALKALINE PHOSPHATASE 54 IU/L (46-116); ANION GAP 14 (8-16); ASPARTATE AMINO TRANSFERASE 27 U/L (10-37); BILIRUBIN,TOTAL 1.2 MG/DL (0.1-1.0); BLOOD UREA NITROGEN 33 MG/DL (7-18); BUN/CREATININE RATIO 9.7 (5.4-32.0); CALCIUM 8.9 MG/DL (8.5-10.1); CHLORIDE 102 MMOL/L (99-107); CREATININE 3.39 MG/DL (0.60-1.10); GLUCOSE 140 MG/DL (70-104); POTASSIUM 3.4 MMOL/L (3.5-5.1); SODIUM 144 MMOL/L (135-145); TOTAL CARBON DIOXIDE 28.1 MMOL/L (24-32); TOTAL PROTEIN 6.7 G/DL (6.4-8.2); eGFR 18 ML/MIN
[2022-04-26 11:33] LABS: CREATINE KINASE 41 U/L (39-308); MAGNESIUM 1.7 MG/DL (1.5-2.4)
[2022-04-26] MEDS ORDERED: normal saline 1000ML IV soln IVB ONE (11:40)
--- NOTE | 2022-04-26 12:06 | NUR ---
DR PIERRE MADE AWARE OF PT'S LOW BP, SEE FLOWSHEET FOR SPECIFICS. IV ACCESS PLACED TO RT AC. NS BOLUS IN PROGRESS ORDERED. BP APPEARS TO BE RESPONDING TO IVF. MONITORING ONGOING
[2022-04-26 12:16] LABS: PLATELET ESTIMATE NORMAL
[2022-04-26 12:17] LABS: ANISOCYTOSIS 3+; BURR CELLS 1+; HYPOCHROMASIA 1+; SCHISTOCYTES FEW
[2022-04-26 14:21] VITALS: BP 105/71
[2022-04-27] MEDS ORDERED: ATOR-2 PO (07:25)
[2022-04-27] MEDS ORDERED: DILT180C89 PO (07:25)
[2022-04-27] MEDS ORDERED: LINA5TAB4 PO (07:25)
[2022-04-27] MEDS ORDERED: AMIO200T27 PO (07:25)
[2022-04-27] MEDS ORDERED: CINA60TA4 PO (07:25)
[2022-04-27] MEDS ORDERED: VITE400C PO (07:25)
[2022-04-27] MEDS ORDERED: RIVA15TA PO (07:25)
[2022-04-27] MEDS ORDERED: CALC667T6 PO (07:25)
[2022-04-27] MEDS ORDERED: INSU100I31 SQ (07:25)
[2022-04-27] MEDS ORDERED: EPOE10008 IV (07:25)
[2022-04-27] MEDS ORDERED: METO5TAB7 PO (07:25)
[2022-04-27] MEDS ORDERED: PANT-47 PO (07:26)
== END 2022-04-26 14:40 | disposition home or self-care (01) ==
LOC: ER 09:59
DX: S09.90XA Unspecified injury of head, initial encounter (principal); Z20.822 Contact with and (suspected) exposure to COVID-19; R06.02 Shortness of breath; I95.9 Hypotension, unspecified; U09.9 Post COVID-19 condition, unspecified; E78.00 Pure hypercholesterolemia, unspecified; I13.0 Hypertensive heart and chronic kidney disease with heart failure and stage 1 through stage 4 chronic kidney disease, or unspecified chronic kidney disease; E13.22 Other specified diabetes mellitus with diabetic chronic kidney disease; N18.9 Chronic kidney disease, unspecified; Z86.14 Personal history of Methicillin resistant Staphylococcus aureus infection; Z98.890 Other specified postprocedural states; Z90.49 Acquired absence of other specified parts of digestive tract; Z88.8 Allergy status to other drugs, medicaments and biological substances; Z79.899 Other long term (current) drug therapy; Z79.1 Long term (current) use of non-steroidal anti-inflammatories (NSAID)
CPT/HCPCS: 36415; 70450; 71045; 72125; 80053; 82550; 83735; 83880; 84145; 84484; 85008; 85025; 85610; 86885; 86900; 86901; 87811; 93005; 97161; 99285; J7030; 96360; 96361; A6258; A6449

== ENCOUNTER 2022-04-27 06:10 | Day surgery (SDC) | payer MEDICARE, MEDICAID ==
[~2022-04-27] VITALS: Ht 167.6 cm; Wt 82.0 kg
[2022-04-27 07:00] VITALS: BP 99/59
[2022-04-27 07:12] LABS: BASOPHILS # (AUTO) 0.1 X10'3 (0-0.2); BASOPHILS % (AUTO) 1.1 % (0-1); EOSINOPHILS # (AUTO) 0.2 X10'3 (0-0.9); EOSINOPHILS % (AUTO) 2.2 % (0-6); HEMATOCRIT 37.2 % (42.0-52.0); HEMOGLOBIN 11.8 g/dl (14.0-17.9); LYMPHOCYTES # (AUTO) 0.8 X10'3 (1.1-4.8); LYMPHOCYTES % (AUTO) 11.3 % (21-51); MEAN CORPUSCULAR HEMOGLOBIN 31.5 PG (27.0-31.0); MEAN CORPUSCULAR HGB CONC 31.7 g/dL (33.0-36.5); MEAN CORPUSCULAR VOLUME 99.4 FL (78-98); MEAN PLATELET VOLUME 10.5 FL (7.4-10.4); MONOCYTES # (AUTO) 0.5 X10'3 (0-0.9); MONOCYTES % (AUTO) 7.1 % (2-12); NEUTROPHILS # (AUTO) 5.6 X10'3 (1.8-7.7); NEUTROPHILS % (AUTO) 78.3 % (42-75); PLATELET COUNT 233 X10'3 (140-440); RED BLOOD COUNT 3.74 X10'6 (4.70-6.10); RED CELL DISTRIBUTION WIDTH 21.4 % (11.5-14.5); WHITE BLOOD COUNT 7.1 X10'3 (4.5-11.0)
[2022-04-27 07:20] LABS: ALBUMIN 3.4 G/DL (3.4-5.0); ANION GAP 14 (8-16); BLOOD UREA NITROGEN 40 MG/DL (7-18); BUN/CREATININE RATIO 10.4 (5.4-32.0); CALCIUM 9.5 MG/DL (8.5-10.1); CHLORIDE 105 MMOL/L (99-107); CREATININE 3.84 MG/DL (0.60-1.10); GLUCOSE 132 MG/DL (70-104); POTASSIUM 3.6 MMOL/L (3.5-5.1); SODIUM 145 MMOL/L (135-145); TOTAL CARBON DIOXIDE 26.5 MMOL/L (24-32); eGFR 15 ML/MIN
[2022-04-27] MEDS ORDERED: ATOR-2 PO (07:25)
[2022-04-27] MEDS ORDERED: METO5TAB7 PO (07:25)
[2022-04-27] MEDS ORDERED: CALC667T6 PO (07:25)
[2022-04-27] MEDS ORDERED: RIVA15TA PO (07:25)
[2022-04-27] MEDS ORDERED: VITE400C PO (07:25)
[2022-04-27] MEDS ORDERED: EPOE10008 IV (07:25)
[2022-04-27] MEDS ORDERED: DILT180C89 PO (07:25)
[2022-04-27] MEDS ORDERED: INSU100I31 SQ (07:25)
[2022-04-27] MEDS ORDERED: LINA5TAB4 PO (07:25)
[2022-04-27] MEDS ORDERED: CINA60TA4 PO (07:25)
[2022-04-27] MEDS ORDERED: AMIO200T27 PO (07:25)
[2022-04-27] MEDS ORDERED: PANT-47 PO (07:26)
[2022-04-27] MEDS ORDERED: midazolam 1 mg/ML 2ml injection ONE (08:40)
[2022-04-27] MEDS ORDERED: LIDOcaine 1%/PF 5ML 10 MG/ML VIAL ONE (08:40)
[2022-04-27] MEDS ORDERED: iohexol 350MG/ML 100ml bottle IV ONE (08:41)
[2022-04-27] MEDS ORDERED: heparin 1,000 UNITS/NS 500ml 500 ML ONE (08:41)
[2022-04-27] MEDS ORDERED: fentaNYL/PF 50MCG/1 ML 2ML syringe ONE (08:41)
[2022-04-27 09:05] LABS: ANISOCYTOSIS 3+; BURR CELLS 1+; HYPOCHROMASIA 1+; PLATELET ESTIMATE NORMAL; SCHISTOCYTES FEW
[2022-04-27 09:06] LABS: ELLIPTOCYTES FEW
[2022-04-27 10:12] VITALS: BP 111/71
[2022-04-27 10:15] VITALS: BP 107/57
[2022-04-27 10:30] VITALS: BP 109/73
[2022-04-27 10:45] VITALS: BP 105/67
[2022-04-27 11:00] VITALS: BP 111/67
== END 2022-04-27 11:15 | disposition home or self-care (01) ==
LOC: SSTAY O 06:10
PROVIDERS: ATTEND Radiology Vascular & Interventional Radiology
DX: T82.898A Other specified complication of vascular prosthetic devices, implants and grafts, initial encounter (principal); Y83.8 Other surgical procedures as the cause of abnormal reaction of the patient, or of later complication, without mention of misadventure at the time of the procedure; I48.91 Unspecified atrial fibrillation; I25.10 Atherosclerotic heart disease of native coronary artery without angina pectoris; E78.00 Pure hypercholesterolemia, unspecified; I12.9 Hypertensive chronic kidney disease with stage 1 through stage 4 chronic kidney disease, or unspecified chronic kidney disease; N18.9 Chronic kidney disease, unspecified; E11.22 Type 2 diabetes mellitus with diabetic chronic kidney disease; M19.90 Unspecified osteoarthritis, unspecified site; Z86.14 Personal history of Methicillin resistant Staphylococcus aureus infection; Z95.1 Presence of aortocoronary bypass graft; Z98.890 Other specified postprocedural states; Z88.8 Allergy status to other drugs, medicaments and biological substances; Z79.899 Other long term (current) drug therapy; Z95.4 Presence of other heart-valve replacement
CPT/HCPCS: 36415; 36901; 76937; 80048; 82948; 85025; 85610; 99152; 99153; C1769; C1894; J1644; J2250; J3010; J3490; J7030; Q9967; 85008; A4620

== ENCOUNTER 2022-04-28 12:34 | Emergency (ER) | payer MEDICARE, MEDICAID ==
[~2022-04-28 12:34] MED LIST changes: +AMIO200T27 PO; -AMIO200T61 PO; -APIX5TAB3 PO; +ATOR-2 PO; +CALC667T6 PO; -CINA30TA2 PO; +CINA60TA4 PO; +DILT180C89 PO; -DILT30TA2 PO; -DOXY-224 PO; +EPOE10008 IV; +INSU100I31 SQ; -IPRA3AMP9 NEB; +LINA5TAB4 PO; +METO5TAB7 PO; +PANT-47 PO; -PANT40TA54 PO; +RIVA15TA PO; -ROSU40TA22 PO; -VITA200T6 PO; +VITE400C PO
--- NOTE | 2022-04-28 12:50 | NUR ---
DR. LITTLEJOHN TALKING WITH FAMILY
--- NOTE | 2022-04-28 13:15 | NUR ---
FAMILY AT BEDSIDE WITH PATIENT
--- NOTE | 2022-04-28 13:50 | NUR ---
PAUL WAS CALLED TO UNIVERSITY RELATIONS DIRECTOR PATIENT
[2022-04-28 14:18] LABS: BASOPHILS # (AUTO) 0.1 X10'3 (0-0.2); EOSINOPHILS # (AUTO) 0.1 X10'3 (0-0.9); LYMPHOCYTES # (AUTO) 2.6 X10'3 (1.1-4.8)
[2022-04-28 14:19] LABS: BASOPHILS % (AUTO) 1.2 % (0-1); EOSINOPHILS % (AUTO) 1.4 % (0-6); LYMPHOCYTES % (AUTO) 32.1 % (21-51); MEAN PLATELET VOLUME 11.2 FL (7.4-10.4); MONOCYTES # (AUTO) 0.3 X10'3 (0-0.9); MONOCYTES % (AUTO) 3.5 % (2-12); NEUTROPHILS # (AUTO) 5.1 X10'3 (1.8-7.7); NEUTROPHILS % (AUTO) 61.8 % (42-75); PLATELET COUNT 163 X10'3 (140-440); WHITE BLOOD COUNT 8.3 X10'3 (4.5-11.0)
[2022-04-28 14:24] LABS: ALANINE AMINOTRANSFERASE 16 U/L (12-78); ALBUMIN 2.5 G/DL (3.4-5.0); ALBUMIN/GLOBULIN RATIO 0.8 (1.1-1.5); ALKALINE PHOSPHATASE 64 IU/L (46-116); ANION GAP 16 (8-16); ASPARTATE AMINO TRANSFERASE 51 U/L (10-37); BILIRUBIN,TOTAL 0.9 MG/DL (0.1-1.0); BLOOD UREA NITROGEN 19 MG/DL (7-18); BUN/CREATININE RATIO 7.1 (5.4-32.0); CALCIUM 8.2 MG/DL (8.5-10.1); CHLORIDE 104 MMOL/L (99-107); CREATININE 2.66 MG/DL (0.60-1.10); GLUCOSE 248 MG/DL (70-104); POTASSIUM 4.4 MMOL/L (3.5-5.1); SODIUM 147 MMOL/L (135-145); TOTAL CARBON DIOXIDE 27.1 MMOL/L (24-32); TOTAL PROTEIN 5.7 G/DL (6.4-8.2); eGFR 23 ML/MIN
[2022-04-28 14:37] LABS: HEMATOCRIT 30.4 % (42.0-52.0); HEMOGLOBIN 9.9 g/dl (14.0-17.9); MEAN CORPUSCULAR HEMOGLOBIN 32.9 PG (27.0-31.0); MEAN CORPUSCULAR HGB CONC 32.7 g/dL (33.0-36.5); RED BLOOD COUNT 3.02 X10'6 (4.70-6.10); RED CELL DISTRIBUTION WIDTH 21.1 % (11.5-14.5)
[2022-04-28 14:38] LABS: MEAN CORPUSCULAR VOLUME 100.7 FL (78-98)
[2022-04-28 15:54] LABS: ANISOCYTOSIS 3+; NUCLEATED RED BLOOD CELLS 1 /100WBC (0-0); PLATELET ESTIMATE NORMAL; TOTAL CELLS COUNTED 100
[2022-04-28 15:55] LABS: BURR CELLS 2+; ELLIPTOCYTES 1+; HYPOCHROMASIA 1+; POLYCHROMASIA FEW; SCHISTOCYTES FEW
--- NOTE | 2022-04-28 17:10 | NUR ---
lewis dodson arrived. info given. pt discharged by summer with [employer]aj[employer] employee
== END 2022-04-28 17:19 ==
LOC: ER 12:35
DX: I46.9 Cardiac arrest, cause unspecified (principal); E78.00 Pure hypercholesterolemia, unspecified; I12.9 Hypertensive chronic kidney disease with stage 1 through stage 4 chronic kidney disease, or unspecified chronic kidney disease; E11.22 Type 2 diabetes mellitus with diabetic chronic kidney disease; N18.9 Chronic kidney disease, unspecified; M19.90 Unspecified osteoarthritis, unspecified site; Z88.8 Allergy status to other drugs, medicaments and biological substances
CPT/HCPCS: 31500; 36415; 80053; 85007; 85025; 92950; 94760; 99285